=== PATIENT | male | born 1985 | race Asian ===

== ENCOUNTER 2022-12-02 08:53 | Outpatient (REF) | payer BC, SELFPAY ==
[2022-12-02 10:58] LABS: MANUAL DIFF FLAG NO
[2022-12-02 11:05] LABS: Basophils Absolute Auto 0.1 X10*3/uL (0.0-0.2); Basophils Percent Auto 0.8 % (0-2); Eosinophils Absolute Auto 0.1 X10*3/uL (0.0-0.4); Eosinophils Percent Auto 1.8 % (0-4); Hematocrit 39.6 % (42.0-52.0); Hemoglobin 13.7 g/dl (14.0-18.0); Imm Gran Abs Auto 0.02 X10*3/uL (0.00-0.03); Imm Gran Pct Auto 0.3 % (0.0-0.4); Lymphocytes Absolute Auto 2.2 X10*3/uL (1.2-4.9); Lymphocytes Percent Auto 33.9 % (20-40); Mean Corpuscular HGB Conc 34.6 g/dl (31.0-36.0); Mean Corpuscular Hemoglobin 29.7 pg (27.0-33.0); Mean Corpuscular Volume 85.9 fL (80.0-98.0); Mean Platelet Volume 10.4 fL (9.4-12.4); Monocytes Absolute Auto 0.6 X10*3/uL (0.1-1.2); Monocytes Percent Auto 9.4 % (2-11); Neutrophils Absolute Auto 3.5 x10*3/uL (2.0-8.3); Neutrophils Percent Auto 53.8 % (45-73); Platelet Count 250 X10*3/uL (160-400); Red Blood Count 4.61 X10*6/uL (4.60-5.80); Red Cell Distribution Width 12.1 % (11.0-16.0); White Blood Count 6.5 X10*3/uL (4.8-10.8)
[2022-12-02 11:21] LABS: Appearance Urine Clear; Color Urine Yellow; Glucose Urine UA Negative (Negative); Leukocyte Esterase Urine Negative (Negative); Nitrite Urine Negative (Negative); Specific Gravity - Urine 1.025 (1.005-1.025); Urine Blood Negative (Negative); Urine Ketones Negative (Negative); Urine Protein Negative (Neg-Trace)
[2022-12-02 11:34] LABS: Estimated Average Glucose 100 mg/dL; Hemoglobin A1c % 5.1 %
[2022-12-02 11:45] LABS: Creatinine Urine 148.98 mg/dL
[2022-12-02 11:56] LABS: Alanine Aminotransferase 24 U/L (0-40); Albumin Level 4.1 g/dL (3.5-5.0); Alkaline Phosphatase 39 U/L (39-117); Anion Gap 14 (12-20); Aspartate Amino Transferase 17 U/L (5-37); Bilirubin Total 0.7 mg/dL (0.0-1.0); Blood Urea Nitrogen 14 mg/dL (9-16); Carbon Dioxide 25 mmol/L (22-29); Chloride 106 mmol/L (96-108); Cholesterol 151 mg/dL; Estimated Glomerular Filt Rate > 60; Glucose Fasting 85 mg/dL (60-99); HDL Cholesterol 39 mg/dL; LDL Cholesterol Calculated 93 mg/dl; Potassium 3.9 mmol/L (3.3-5.1); Sodium 141 mmol/L (135-145); Total Protein 7.4 g/dL (6.5-8.0); Triglycerides 96 mg/dL
[2022-12-02 12:00] LABS: TSH reflex Free T4 1.83 uIU/mL (0.32-4.0); Vitamin D 25-OH Total 33.5 ng/mL (>30)
== END 2022-12-02 08:54 | disposition home or self-care (01) ==
LOC: HO.WFDLDS 08:53
PROVIDERS: Visit Provider Family Medicine
DX: Z00.00 Encounter for general adult medical examination without abnormal findings (principal); E55.9 Vitamin D deficiency, unspecified; E66.9 Obesity, unspecified; R73.01 Impaired fasting glucose; I10 Essential (primary) hypertension
CPT/HCPCS: 36415; 80053; 80061; 81003; 82043; 82306; 83036; 84443; 85025

== ENCOUNTER 2023-01-24 13:57 | Outpatient (AMB) | payer BC, SELFPAY ==
--- NOTE | 2023-01-24 14:05 | MHC.PC.OV ---
Vital Signs 01/24/23 14:07 Height 5 ft 8 in Weight 178 lb BMI 27.1 BP 120/62 Blood Pressure Location Lt brachial Position Sitting Pulse 69 Pulse Source Pulse Oximeter Pulse Oximetry (%) 97 Oxygen Delivery Method Room Air Intake Visit Reasons: CPE with f/u labs and health maintenance Intake Note: Patient is here for physical and follow up on labs. Allergies No Known Allergies Allergy (Verified 01/24/23 14:09) Tobacco use date assessed: 01/24/23 Dental Screening Dental Screen Date: 01/24/23 Did you have a dental visit in the last 12 months?: Yes Did you have a dental problem in the last 6 months where you did not have access to dental care?: No Was dental information given to patient?: No HPI CPE with f/u labs and health maintenance HPI Details 37 y/o male presents for a CPE with f/u labs and health maintenance. Labs were drawm 12/02/22. Reviewed labs with pt. Hgb low at 13.7. HCT low 39.6. Triglycerides 96. TC 151. LDL 93. HDL low at 39. Vitamin level 33.5. He is on cholcecalciferol 50mcg daily. Pt reports complaints of dyspnea. Pt reports increased stress primarily at work and anxiety. HPI Comments History of Present Illness Details Documentation assistance for Mansoor Castro MD, was provided by Wilver Trent,? Coffee Shop Attendant on 01/24/2023 3:02 PM [place]. I, Dr. Castor, have read, observed, and verified documentation.? [facility] Medical History Cyst near tailbone Epidermoid cyst of skin of chest Sebaceous cyst of left axilla Family History Paternal Grandmother Cancer Maternal Grandmother Advanced dementia Father Substance abuse Mother Mental health disorder Social History Household Members: Other Household Members Other:: mother Both parents involved: No Housing: Apartment Are you a primary health care / medical job titles to a significant other at home: Yes Do you presently have visiting nurse or other home services: No 75 years or older and lives alone: No Alcohol intake: never Patient Tobacco Use Status: Never used Tobacco e-Cigarette/Vaping Use: Never Used service: No Current occupational status: employed 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 Review of Systems Const Denies chills, Denies fatigue, Denies fever(s), Denies headache(s) and Denies weakness Eyes Denies change in vision ENT Denies dizziness, Denies headache(s), Denies hearing loss, Denies nasal congestion, Denies sinus pain, Denies sinus pressure and Denies sore throat Card Denies chest pain, Denies lightheadedness, Denies dyspnea and Denies other (palpitations) Resp Denies cough, Denies dyspnea and Denies wheezing GI Denies abdominal pain, Denies melena, Denies hematochezia, Denies change in bowel habits, Denies dyspepsia and Denies nausea Denies hematuria and Denies dysuria Musc Denies abnormal gait, Denies myalgias, Denies arthralgias, Denies numbness and Denies tingling Skin/Breast Denies rash, Denies unusual bruising and Denies wounds Neuro Denies abnormal gait, Denies dizziness, Denies headache(s), Denies memory loss, Denies numbness, Denies Sensory deficit (Neuro), Denies tingling and Denies weakness Psych Denies anxiety, Denies depression and Denies memory loss Endo Denies cold intolerance, Denies fatigue, Denies heat intolerance, Denies polydipsia and Denies polyuria Demetrius/Lymph Denies easy bleeding and Denies easy bruising Aller/Immun Denies wheezing Physical exam (Primary Care) Vital Signs: Last Vital Signs Pulse 69 01/24/23 14:07 BP 120/62 01/24/23 14:07 Pulse Ox 97 01/24/23 14:07 Oxygen Delivery Method Room Air 01/24/23 14:07 BMI result Body Mass Index 27.1 Tobacco/Smoking Status: Tobacco use Status Tobacco use date assessed 01/24/23 01/24/23 14:13 Patient Tobacco Use Status Never used Tobacco 01/24/23 14:07 e-Cigarette/Vaping Use Never Used 01/24/23 14:13 Const General: no acute distress, well developed, alert and awake Nutritional Appearance: well nourished Orientation/consciousness: patient oriented x3 HENMT Head: Yes normocephalic and Yes atraumatic Ears: hearing grossly normal bilaterally and TM's normal bilaterally General nose exam: Normal external nose present and Normal nares present Mouth: Normal oral and palatal mucosa present and moist mucous membranes Teeth and gingiva: dentition normal Throat: Yes posterior oropharynx normal Eyes General: appearance normal, both eyes and all related structures Pupils: Equal, round and reactive pupils present and Pupil accommodation reflex normal EOM: EOMs intact bilaterally Neck Neck: Yes normal visual inspection, Yes no lymphadenopathy and Yes trachea midline Thyroid: Thyroid normal Carotids: no bruits Lymphatic: no lymphadenopathy noted Chest Chest palpation & inspection: normal inspection of the chest Resp Other: Coarse breath sounds Effort & Inspection: normal respiratory effort Auscultation: clear to auscultation bilaterally Cardio Rate: regular rate Rhythm: regular rhythm Heart sounds: S1 normal heart sound present, S2 normal heart sound present, no gallops, no murmurs and no rubs Bruits: no abdominal aortic bruits and no carotid bruits GI Palpation (GI): No Abdominal aortic bruit present, Soft to palpation, nontender, No hepatosplenomegaly present and No Rebound tenderness present Auscultation: normal bowel sounds General: Yes no CVA tenderness Back/Spine/Pelvis Back: no CVA tenderness Cervical Spine: cervical ROM normal and No Cervical spine tenderness Thoracic/Lumbar Spine: thoraco-lumbar ROM normal, No pain with thoraco-lumbar ROM, No thoracic spinal tenderness and No lumbar spinal tenderness Skin Lesions: no lesions Rashes: no rashes Trauma: no lacerations or abrasions Wounds: no wounds Nails: normal Neuro General: patient oriented x3 Cranial nerves: Yes Equal, round and reactive pupils present Cognition (Neuro): normal cognition Gait exam (Neuro): Normal gait present Motor exam (neuro): 5/5 motor strength present throughout Sensory Exam: No Sensory deficit (Neuro) Deep tendon reflexes (DTR's): Right patellar reflex intensity grade: 2+ and Left patellar reflex intensity grade: 2+ Extrem General: Yes normal to inspection and No edema Psych Appearance: grossly normal Affect: normal affect Attitude: cooperative Thought process: Normal thought process present Assessment and Plan Assessment & Plan (1) Adult general medical exam: Code(s): Z00.00 - Encounter for general adult medical examination without abnormal findings Plan: 37-year-old male presents For complete physical exam Encouraged healthy diet with active lifestyle and plenty of exercise (2) Low HDL (under 40): Code(s): 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 Encouraged a diet higher in [place] 3 fatty acids and encouraged exercise (3) Dyspnea: Code(s): R06.00 - Dyspnea, unspecified Plan: Patient notes some dyspnea with exertion and has a mild coarseness at left upper lung field Chest x-ray was ordered at last visit but he has not gotten this done yet. He will get this done and we will review together at his next visit. I will call him if action is required sooner. (4) Heartburn: Code(s): R12 - Heartburn Plan: Mild and intermittent Advise lifestyle changes Can use OTC medications for intermittent episodes. (5) Anxiety: Code(s): F41.9 - Anxiety disorder, unspecified Plan: Increased stress primarily at work and anxiety He has had a therapist but it sounds like he would be interested in a knee therapist Will ask the nurse navigator to review basic stress management techniques and refer him for therapist Briefly discussed medications for anxiety. We will follow-up at his next visit and consider again. Orders: Referrals Nurse Navigator Referral F41.9 - Anxiety disorder, unspecified Coding Level of Care Code Est Pt Level 3 (44840) Est Pt Prev Care 18-39y(97355) Diagnoses Adult general medical exam Z00.00 Low HDL (under 40) E78.6 Dyspnea R06.00 Heartburn R12 Anxiety F41.9
[2023-01-24 14:07] VITALS: BP 120/62; PULSE 69; O2SAT 97; BMI 27.1
== END 2023-01-24 15:10 | disposition home or self-care (01) ==
PROVIDERS: PCP Family Medicine; Visit Provider Family Medicine
DX: Z00.00 Encounter for general adult medical examination without abnormal findings (principal); F41.9 Anxiety disorder, unspecified; E78.6 Lipoprotein deficiency; R06.00 Dyspnea, unspecified; R12 Heartburn
CPT/HCPCS: 99395

== ENCOUNTER 2023-01-25 08:59 | Outpatient (REF) | payer BC, SELFPAY ==
--- NOTE | ~2023-01-25 | XR_ITS ---
EXAMINATION: XR CHEST CLINICAL INFORMATION: Hoarseness, other specified symptoms COMPARISON: None available. TECHNIQUE: 2 views of the chest were obtained. FINDINGS: No significant abnormality is noted involving the heart, lungs, mediastinum, bony thorax or soft tissues. XR/XR chest 2V IMPRESSION: Unremarkable examination.
== END 2023-01-25 09:00 | disposition home or self-care (01) ==
LOC: HO.XRAY 08:59
PROVIDERS: PCP Family Medicine; Visit Provider Family Medicine
DX: R09.89 Other specified symptoms and signs involving the circulatory and respiratory systems (principal)
CPT/HCPCS: 71046

== ENCOUNTER 2023-03-03 11:57 | Outpatient (AMB) | payer BC, SELFPAY ==
[2023-03-03 11:59] VITALS: BP 104/66; PULSE 82; RESP 14; TEMP 37.1; O2SAT 98; BMI 39.0
--- NOTE | 2023-03-03 11:59 | A.OFFPC_ITS ---
Vital Signs 03/03/23 11:59 Height 5 ft 8 in Weight 256 lb 4 oz BMI 39.0 BP 104/66 Blood Pressure Location Lt brachial Position Sitting Respiration 14 Pulse 82 Pulse Source Pulse Oximeter Temp 98.7 F Temp Source Oral Pulse Oximetry (%) 98 Oxygen Delivery Method Room Air Intake Visit Reasons: f/u anxiety and chest x-ray Intake Note: Patient is here to follow up regarding his anxiety and chest xray. Patient reports he has not received a phone call about his therapy. Workforce Planning Analyst Required: No Accompanied by: Self / Same As Patient Allergies No Known Allergies Allergy (Verified 03/03/23 12:07) Tobacco use date assessed: 01/24/23 HPI f/u anxiety and chest x-ray HPI Details 37 y/o male presents to f/u anxiety and chest x-ray. Pt had dyspnea on exertion with coarse breath sounds at L upper lung field. Chest x-ray 01/25/23 was unremarkable. Pt weighs 256 lbs today. He reports he has not been in the 170s in a long time. [facility] Medical History Cyst near tailbone Epidermoid cyst of skin of chest Sebaceous cyst of left axilla Family History Paternal Grandmother Cancer Maternal Grandmother Advanced dementia Father Substance abuse Mother Mental health disorder Social History Household Members: Other Household Members Other:: mother Both parents involved: No Housing: Apartment Are you a primary home child care provider to a significant other at home: Yes Do you presently have visiting nurse or other home services: No 75 years or older and lives alone: No Alcohol intake: never Patient Tobacco Use Status: Never used Tobacco e-Cigarette/Vaping Use: Never Used service: No Current occupational status: employed 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 Cognitive needs: No Hearing needs: No Vision needs: No Questionnaire JANENE-7 AMB Questionnaire JANENE-7 Date JANENE - 7 assessed: 03/03/23 Feeling nervous, anxious, or on edge: 0 = Not at all Not being able to stop or control worryin = Not at all Worrying too much about different things: 1 = Several days Trouble relaxin = Several days Being so restless that it is hard to sit still: 1 = Several days Becoming easily annoyed or irritable: 1 = Several days Feeling afraid as if something awful might happen: 0 = Not at all Total JANENE-7 score (0-4 normal; 5-9 mild; 10-14 moderate; 15-21 severe): 4 Source: Developed by Drs. Dominic De Leon, Pam Landry, Chinedu Tate and colleagues, with an educational armida from [employer]. Review of Systems Const Denies chills, Denies fatigue, Denies fever(s), Denies headache(s) and Denies weakness ENT Denies dizziness and Denies headache(s) Card Denies chest pain, Denies lightheadedness, Denies dyspnea and Denies other (Palpitations) Resp Denies cough, Denies dyspnea, Denies wheezing and Denies other ( shortness of breath) Musc Denies numbness and Denies tingling Neuro Denies dizziness, Denies headache(s), Denies numbness, Denies tingling, Denies paresthesias and Denies weakness Psych Denies anxiety and Denies depression Endo Denies fatigue Aller/Immun Denies wheezing Physical exam (Primary Care) Vital Signs: Last Vital Signs Temp 98.7 F 03/03/23 11:59 Pulse 82 03/03/23 11:59 Resp 14 03/03/23 11:59 BP 104/66 03/03/23 11:59 Pulse Ox 98 03/03/23 11:59 Oxygen Delivery Method Room Air 03/03/23 11:59 BMI result Body Mass Index 39.0 Tobacco/Smoking Status: Tobacco use Status Tobacco use date assessed 01/24/23 03/03/23 11:59 Patient Tobacco Use Status Never used Tobacco 03/03/23 11:59 e-Cigarette/Vaping Use Never Used 03/03/23 11:59 Const General: no acute distress and well developed Nutritional Appearance: well nourished Orientation/consciousness: patient oriented x3 HENMT Head: Yes normocephalic and Yes atraumatic Eyes General: appearance normal, both eyes and all related structures Pupils: Equal, round and reactive pupils present EOM: EOMs intact bilaterally Resp Effort & Inspection: normal respiratory effort Auscultation: clear to auscultation bilaterally Cardio Rate: regular rate Rhythm: regular rhythm Heart sounds: S1 normal heart sound present, S2 normal heart sound present, no gallops, no murmurs and no rubs Neuro General: patient oriented x3 and gait normal Cranial nerves: Yes Equal, round and reactive pupils present Psych Affect: normal affect Assessment and Plan Assessment & Plan (1) Anxiety: Code(s): F41.9 - Anxiety disorder, unspecified Plan: Ongoing anxiety. Had referred him to the nurse navigator but he had not gotten a call back yet. Spoke to nurse navigator today who will see the patient. Reiterated to patient that he can call for appointment if he is not improving or worsens at any time. Reiterated that we can consider medications if he is interested. No medications needed at this time (2) Dyspnea: Code(s): R06.00 - Dyspnea, unspecified Plan: Patient had had dyspnea a few months ago in air quality was very poor He is breathing well now Lungs sound clear-no longer coarse breath sounds May have some restrictive lung disease due to obesity. Encouraged weight loss (3) Obesity: Code(s): E66.9 - Obesity, unspecified Plan: We discussed healthy diet with reduced portion sizes. He can let me know if he is still having difficulty with weight loss and we hand consider a medical weight management program Orders: Orders Comprehensive [place]. Panel Fast Today Z00.00 - Encounter for general adult medical examination without abnormal findings UA and rflx microscopic Today Z00.00 - Encounter for general adult medical examination without abnormal findings Lipid Panel Today Z00.00 - Encounter for general adult medical examination without abnormal findings Microalbumin, Random (w Creat) Today I10 - Essential (primary) hypertension TSH reflex Free T4 Today Z00.00 - Encounter for general adult medical examination without abnormal findings Coding Level of Care Code Est Pt Level 4 (33651) Diagnoses Anxiety F41.9 Dyspnea R06.00 Obesity E66.9
== END 2023-03-03 12:56 | disposition home or self-care (01) ==
PROVIDERS: PCP Family Medicine; Visit Provider Family Medicine
DX: F41.9 Anxiety disorder, unspecified (principal); R06.00 Dyspnea, unspecified; E66.9 Obesity, unspecified; Z68.39 Body mass index [BMI] 39.0-39.9, adult
CPT/HCPCS: 99214

== ENCOUNTER 2023-08-24 09:25 | Outpatient (AMB) | payer BC, SELFPAY ==
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
[2023-08-24 09:43] VITALS: BP 118/74; PULSE 81; RESP 13; TEMP 36.4; O2SAT 96; BMI 39.1
== END 2023-08-24 10:53 | disposition home or self-care (01) ==
PROVIDERS: PCP Family Medicine; Visit Provider Nurse Practitioner Family
DX: J01.40 Acute pansinusitis, unspecified (principal)
CPT/HCPCS: 99214

== ENCOUNTER 2023-10-04 14:16 | Outpatient (AMB) | payer BC, SELFPAY ==
--- NOTE | 2023-10-04 14:18 | MHC.PC.OV ---
Vital Signs 10/04/23 14:22 Height 5 ft 8 in Weight 258 lb 9 oz BMI 39.3 BP 120/62 Blood Pressure Location Lt brachial Position Sitting Pulse 72 Pulse Source Pulse Oximeter Pulse Oximetry (%) 97 Oxygen Delivery Method Room Air Intake Visit Reasons: insulin resistance and risk for DM, obesity Intake Note: Patient is here for insulin resistance and risk for diabetes. Patient complains of right foot pain. Allergies No Known Allergies Allergy (Verified 10/04/23 14:23) Medication List - Last Reconciled 10/04/23 by Mansoor Castro MD cholecalciferol (vitamin D3) 50 mcg PO DAILY flaxseed oil 1,000 mg PO DAILY multivitamin 1 tab PO DAILY Tobacco use date assessed: 10/04/23 Dental Screening Dental Screen Date: 01/24/23 Did you have a dental visit in the last 12 months?: Yes Did you have a dental problem in the last 6 months where you did not have access to dental care?: No Was dental information given to patient?: Patient has dentist HPI insulin resistance and risk for DM, obesity HPI Details 37 y/o male presents to f/u obesity. Last A1c 12/02/22 5.1%. A1c today 10/04/23 is 5.4%. He notes he has recently been weight lifting but has been struggling to do this 3x a week, though he has added some walking to his exercise regimen. Pt has complaints of R foot pain. [facility] Medical History Epidermoid cyst of skin of chest Sebaceous cyst of left axilla Cyst near tailbone Family History Paternal Grandmother Cancer Maternal Grandmother Advanced dementia Father Substance abuse Mother Mental health disorder Social History Household Members: Other Household Members Other:: mother Both parents involved: No Housing: Apartment Are you a primary respiratory care specialist to a significant other at home: Yes Do you presently have visiting nurse or other home services: No 75 years or older and lives alone: No Alcohol intake: never Patient Tobacco Use Status: Never used Tobacco e-Cigarette/Vaping Use: Never Used service: No Current occupational status: employed 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 1. Little interest or pleasure in doing things: not at all 2. Feeling down, depressed, or hopeless: not at all 3. Trouble falling or staying asleep, or sleeping too much: not at all 4. Feeling tired or having little energy: not at all 5. Poor appetite or overeating: not at all 6. Feeling bad about yourself - or that you are a failure or have let yourself or your family down: not at all 7. Trouble concentrating on things, such as reading the newspaper or watching television: not at all 8. Moving or speaking so slowly that other people could have noticed. Or the opposite - being so fidgety or restless that you have been moving around a lot more than usual: not at all 9. Thoughts that you would be better off or of hurting yourself in some way: not at all Total score: 0 Depression Screening Interpretation: Negative Depression Screening Done: Yes 22822 - PHQ-9 Billing: Yes Source: Developed by Drs. Dominic De Leon, Pam Landry, Chinedu Tate and colleagues, with an educational armida from [employer]. Thrive Questionnaire Date Thrive assessed: 10/04/23 I am a: Patient What is your living situation today?: I have a steady place to live Within the past 12 months, did the food you bought not last and you didn't have the money to get more?: Never true Within the past 12 months, did you worry whether your food would run out before you got money to buy more?: Never true Do you have trouble paying for medicines?: No Do you have trouble getting transportation to medical appointments?: No Do you have trouble paying your heating and electricity bill?: No Do you have trouble taking care of your child, family member or friend?: No Do you have trouble with day-to-day activities such as bathing, preparing meals, shopping, managing finances, etc.?: No Are you currently unemployed and looking for a job?: No Are you interested in more education?: No THRIVE Score: 0 AUDIT C Alcohol Use Questionnaire (AUDIT-C) 1. How often do you have a drink containing alcohol?: Never 3. How often do you have six or more drinks on one occasion?: Never Total Score: 0 JANENE-7 AMB Questionnaire JANENE-7 Date JANENE - 7 assessed: 10/04/23 Feeling nervous, anxious, or on edge: 0 = Not at all Not being able to stop or control worryin = Not at all Worrying too much about different things: 0 = Not at all Trouble relaxin = Not at all Being so restless that it is hard to sit still: 0 = Not at all Becoming easily annoyed or irritable: 0 = Not at all Feeling afraid as if something awful might happen: 0 = Not at all Total JANENE-7 score (0-4 normal; 5-9 mild; 10-14 moderate; 15-21 severe): 0 Source: Developed by Drs. Dominic De Leon, Pam Landry, Chinedu Tate and colleagues, with an educational armida from [employer]. JANENE-7 Assessment Billing JANENE-7 Assessment Tool: JANENE-7 Assessment 32293 Review of Systems Const Denies chills, Denies fatigue, Denies fever(s), Denies headache(s) and Denies weakness ENT Denies dizziness and Denies headache(s) Card Denies dyspnea Resp Denies cough, Denies dyspnea, Denies wheezing and Denies other (shortness of breath) Musc Details: R foot pain Denies numbness and Denies tingling Neuro Denies dizziness, Denies headache(s), Denies numbness, Denies tingling and Denies weakness Psych Denies anxiety and Denies depression Endo Denies fatigue Aller/Immun Denies wheezing Physical exam (Primary Care) Vital Signs: Last Vital Signs Pulse 72 10/04/23 14:22 BP 120/62 10/04/23 14:22 Pulse Ox 97 10/04/23 14:22 Oxygen Delivery Method Room Air 10/04/23 14:22 BMI result Body Mass Index 39.3 Tobacco/Smoking Status: Tobacco use Status Tobacco use date assessed 10/04/23 10/04/23 14:30 Patient Tobacco Use Status Never used Tobacco 10/04/23 14:18 e-Cigarette/Vaping Use Never Used 10/04/23 14:18 PHQ-9: PHQ-9 Score PHQ-9: Total score 0 10/04/23 14:32 Depression Screening Interpretation: Negative Thrive Assessment: Date of Thrive Assessment Date Thrive assessed 10/04/23 10/04/23 14:30 Const General: well developed; No acute distress Nutritional Appearance: well nourished and obese Orientation/consciousness: patient oriented x3 HENMT Head: Yes normocephalic and Yes atraumatic Eyes General: appearance normal, both eyes and all related structures Pupils: Equal, round and reactive pupils present EOM: EOMs intact bilaterally Resp Effort & Inspection: normal respiratory effort Auscultation: clear to auscultation bilaterally Cardio Rate: regular rate Rhythm: regular rhythm Heart sounds: S1 normal heart sound present, S2 normal heart sound present, no gallops, no murmurs and no rubs Neuro General: patient oriented x3 and gait normal Cranial nerves: Yes Equal, round and reactive pupils present Psych Affect: normal affect Assessment and Plan Assessment & Plan (1) Obesity: Code(s): E66.9 - Obesity, unspecified Plan: Obesity?and?patient?has?concerns?regarding?blood?sugar?and?diabetes. A1c?still?in?normal?range?though?it?did?climbed?to?5.4%. Encouraged?a?diet?lower?in?sugars?and?starches.??Encouraged?exercise?and?some?weight?loss. Will?continue?to?monitor (2) Plantar fasciitis: Code(s): M72.2 - Plantar fascial fibromatosis Plan: Right?plantar?fasciitis Demonstrated?exercises Can?also?use?ice/heat?and?ibuprofen If?not?improving?will?refer?to?Podiatry Orders: Orders Lipid Panel Today Z00.00 - Encounter for general adult medical examination without abnormal findings TSH reflex Free T4 Today Z00.00 - Encounter for general adult medical examination without abnormal findings UA and rflx microscopic Today Z00.00 - Encounter for general adult medical examination without abnormal findings Vitamin D 25-OH Total Today E55.9 - Vitamin D deficiency, unspecified Comprehensive [place]. Panel Fast Today Z00.00 - Encounter for general adult medical examination without abnormal findings Complete Blood Count Auto Diff Today Z00.00 - Encounter for general adult medical examination without abnormal findings Microalbumin, Random (w Creat) Today I10 - Essential (primary) hypertension Vitamin B12 and Folate Today E53.8 - Deficiency of other specified B group vitamins IRON PROFILE Today D64.9 - Anemia, unspecified AMB Hemoglobin A1c Today Z13.9 - Encounter for screening, unspecified Coding Level of Care Code Est Pt Level 3 (03723) Diagnoses Obesity E66.9 Plantar fasciitis M72.2 Additional Codes JANENE-7 Assessment Billing - JANENE-7 Assessment Tool: JANENE-7 Assessment 63303 ([id number])
[2023-10-04 14:22] VITALS: BP 120/62; PULSE 72; O2SAT 97; BMI 39.3
== END 2023-10-04 14:52 | disposition home or self-care (01) ==
PROVIDERS: PCP Family Medicine; Visit Provider Family Medicine
DX: M72.2 Plantar fascial fibromatosis (principal); E66.9 Obesity, unspecified; Z13.9 Encounter for screening, unspecified; Z68.39 Body mass index [BMI] 39.0-39.9, adult
CPT/HCPCS: 83036; 99213

== ENCOUNTER 2023-12-29 15:12 | Outpatient (AMB) | payer BC, SELFPAY ==
--- NOTE | 2023-12-29 15:34 | A.OFFPC_ITS ---
Vital Signs 12/29/23 15:37 Height 5 ft 8 in Weight 260 lb 2 oz BMI 39.5 BP 110/78 Blood Pressure Location Lt brachial Position Sitting Pulse 82 Pulse Source Pulse Oximeter Pulse Oximetry (%) 97 Oxygen Delivery Method Room Air Intake Visit Reasons: CPE with f/u labs and health maint. 30 mins Intake Note: Physical Allergies No Known Allergies Allergy (Verified 12/29/23 15:37) Tobacco use date assessed: 10/04/23 Dental Screening Dental Screen Date: 01/24/23 HPI CPE with f/u labs and health maint. 30 mins HPI Details Pt is a 38 y/o male who presents today for a cpe. psych: he has a hx of generalized anxiety. He states that he has followed with . He states that his job is not that interesting to him. He states that he does not have a lot of family or friends in this area and relocated for this job. He has started some painting classes that have been helpful. He is not interested in starting medication. 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 [facility] Medical History Epidermoid cyst of skin of chest Sebaceous cyst of left axilla Cyst near tailbone Family History Paternal Grandmother Cancer Maternal Grandmother Advanced dementia Father Substance abuse Mother Mental health disorder Social History Household Members: Other Household Members Other:: mother Both parents involved: No Housing: Apartment Are you a primary hourly caregiver to a significant other at home: Yes Do you presently have visiting nurse or other home services: No 75 years or older and lives alone: No Alcohol intake: never Patient Tobacco Use Status: Never used Tobacco e-Cigarette/Vaping Use: Never Used service: No Current occupational status: employed 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 Dominic De Leon, Pam Landry, Chinedu Tate and colleagues, with an educational armida from [employer]. Physical exam (Primary Care) Vital Signs: Last Vital Signs Pulse 82 12/29/23 15:37 BP 110/78 12/29/23 15:37 Pulse Ox 97 12/29/23 15:37 Oxygen Delivery Method Room Air 12/29/23 15:37 BMI result Body Mass Index 39.5 Tobacco/Smoking Status: Tobacco use Status Tobacco use date assessed 10/04/23 12/29/23 15:34 Patient Tobacco Use Status Never used Tobacco 12/29/23 15:34 e-Cigarette/Vaping Use Never Used 12/29/23 15:34 Thrive Assessment: Date of Thrive Assessment Date Thrive assessed 10/04/23 12/29/23 15:34 Const Orientation/consciousness: patient oriented x3 HENMT Ears: hearing grossly normal bilaterally and TM's normal bilaterally General nose exam: No nasal polyps present Face and sinus: Yes sinuses nontender Mouth: Normal oral and palatal mucosa present Eyes Pupils: Equal, round and reactive pupils present EOM: EOMs intact bilaterally Neck Neck: Yes full ROM and Yes no lymphadenopathy Thyroid: Thyroid normal Chest Chest palpation & inspection: normal inspection of the chest Resp Auscultation: clear to auscultation bilaterally Cardio Rate: regular rate Rhythm: regular rhythm Heart sounds: S1 normal heart sound present and S2 normal heart sound present Peripheral pulses: Peripheral pulses 2+ throughout GI Other: Soft, nontender Auscultation: normal bowel sounds Rectal Exam - Male: Yes deferred General: Yes no CVA tenderness Back/Spine/Pelvis Other: Nontender Back: no CVA tenderness Skin General skin exam: no rashes or lesions noted Neuro General: patient oriented x3, gait normal, CN's II-XI intact bilaterally and deep tendon reflexes 2+ bilaterally Cranial nerves: Yes Equal, round and reactive pupils present Motor exam (neuro): 5/5 motor strength present throughout Sensory Exam: double simultaneous stimulation for sensation normal Coordination: [id number] test normal and Romberg test negative Extrem General: Yes normal to inspection and Yes full ROM Psych Affect: normal affect Attitude: cooperative Thought process: Normal thought process present Thought content: Normal thought content present Insight: Good insight present (Psych) Judgement: Good judgement present (Psych) Assessment and Plan Assessment & Plan (1) Routine general medical examination at a health care facility: Code(s): Z00.00 - Encounter for general adult medical examination without abnormal findings Plan: reviewed. offered referral to maintenance mechanic helper and he declines. encouraged exercise. (2) Generalized anxiety disorder: Code(s): F41.1 - Generalized anxiety disorder Plan: stable. declines referral to . no meds Orders: Orders Comprehensive [place]. Panel Fast Today F41.1 - Generalized anxiety disorder, Z00.00 - Encounter for general adult medical examination without abnormal findings Complete Blood Count Auto Diff Today F41.1 - Generalized anxiety disorder, Z00.00 - Encounter for general adult medical examination without abnormal findings Lipid Panel Today F41.1 - Generalized anxiety disorder, Z00.00 - Encounter for general adult medical examination without abnormal findings TSH reflex Free T4 Today F41.1 - Generalized anxiety disorder, Z00.00 - Encounter for general adult medical examination without abnormal findings Coding Level of Care Code Est Pt Prev Care 18-39y(71413) Diagnoses Routine general medical examination at a health care facility Z00.00 Generalized anxiety disorder F41.1
[2023-12-29 15:37] VITALS: BP 110/78; PULSE 82; O2SAT 97; BMI 39.5
== END 2023-12-29 16:15 | disposition home or self-care (01) ==
PROVIDERS: PCP Family Medicine; Visit Provider Physician Assistant
DX: Z00.00 Encounter for general adult medical examination without abnormal findings (principal); F41.1 Generalized anxiety disorder
CPT/HCPCS: 99395

== ENCOUNTER 2024-01-23 07:42 | Outpatient (REF) | payer BC, SELFPAY ==
[2024-01-23 11:15] LABS: MANUAL DIFF FLAG NO
[2024-01-23 11:33] LABS: Basophils Absolute Auto 0.1 X10*3/uL (0.0-0.2); Eosinophils Absolute Auto 0.2 X10*3/uL (0.0-0.4); Hematocrit 40.9 % (42.0-52.0); Imm Gran Abs Auto 0.02 X10*3/uL (0.00-0.03); Imm Gran Pct Auto 0.3 % (0.0-0.4); Lymphocytes Absolute Auto 2.1 X10*3/uL (1.2-4.9); Lymphocytes Percent Auto 33.8 % (20-40); Mean Corpuscular HGB Conc 34.2 g/dl (31.0-36.0); Mean Corpuscular Hemoglobin 29.3 pg (27.0-33.0); Mean Corpuscular Volume 85.6 fL (80.0-98.0); Mean Platelet Volume 10.4 fL (9.4-12.4); Monocytes Absolute Auto 0.6 X10*3/uL (0.1-1.2); Monocytes Percent Auto 9.9 % (2-11); Neutrophils Absolute Auto 3.3 x10*3/uL (2.0-8.3); Platelet Count 245 X10*3/uL (160-400); Red Blood Count 4.78 X10*6/uL (4.60-5.80); Red Cell Distribution Width 12.5 % (11.0-16.0); White Blood Count 6.3 X10*3/uL (4.8-10.8)
[2024-01-23 11:34] LABS: Appearance Urine Clear; Color Urine Yellow; Glucose Urine UA Negative (Negative); Leukocyte Esterase Urine Negative (Negative); Nitrite Urine Negative (Negative); Urine Blood Negative (Negative); Urine Ketones Negative (Negative); Urine Protein Negative (Neg-Trace)
[2024-01-23 12:03] LABS: Alanine Aminotransferase 23 U/L (0-40); Albumin Level 4.1 g/dL (3.5-5.0); Alkaline Phosphatase 36 U/L (39-117); Anion Gap 11 (12-20); Aspartate Amino Transferase 19 U/L (5-37); Bilirubin Total 0.7 mg/dL (0.0-1.0); Blood Urea Nitrogen 12 mg/dL (9-16); Calcium 8.7 mg/dL (8.4-10.2); Carbon Dioxide 25 mmol/L (22-29); Chloride 106 mmol/L (96-108); Cholesterol 156 mg/dL (<200); Estimated Glomerular Filt Rate > 60; Glucose Fasting 93 mg/dL (60-99); HDL Cholesterol 41 mg/dL (>40); Iron 92 mcg/dL (45-160); LDL Cholesterol Calculated 89 mg/dL (<100); Percent Iron Saturation 30 % (15-50); Potassium 3.8 mmol/L (3.3-5.1); Sodium 138 mmol/L (135-145); Total Iron Binding Capacity 302 mcg/dL (228-428); Total Protein 7.2 g/dL (6.5-8.0); Triglycerides 133 mg/dL (<150); Unsaturated Iron Binding 210 ug/dL
[2024-01-23 12:09] LABS: TSH reflex Free T4 1.26 uIU/mL (0.32-4.0)
[2024-01-23 12:18] LABS: Creatinine Urine 122.57 mg/dL; Microalbum/Creatinine Ratio Ur 4.8 ug/mg cr (<30)
[2024-01-23 12:19] LABS: Folate 7.8 ng/mL (> or = 4.0); Vitamin B12 401 pg/mL (200-900)
== END 2024-01-23 07:43 | disposition home or self-care (01) ==
LOC: HO.WFDLDS 07:42
PROVIDERS: Visit Provider Family Medicine
DX: Z00.00 Encounter for general adult medical examination without abnormal findings (principal); E55.9 Vitamin D deficiency, unspecified; E53.8 Deficiency of other specified B group vitamins; I10 Essential (primary) hypertension; D64.9 Anemia, unspecified
CPT/HCPCS: 36415; 80053; 80061; 81003; 82043; 82306; 82570; 82607; 82746; 83540; 84443; 85025

== ENCOUNTER 2024-01-27 11:58 | Outpatient (AMB) | payer BC, SELFPAY ==
--- NOTE | 2024-01-27 12:08 | A.OFFPC_ITS ---
Vital Signs 01/27/24 12:17 Height 5 ft 7 in Weight 261 lb 4 oz BMI 40.9 BP 110/80 Blood Pressure Location Lt brachial Position Sitting Respiration 16 Pulse 73 Pulse Source Pulse Oximeter Temp 97.9 F Temp Source Oral Pulse Oximetry (%) 98 Oxygen Delivery Method Room Air Intake Visit Reasons: CPE with f/u labs and health maint. Intake Note: CPE lab follow up pt would also like to talk about staring depression medication due to isolation in his personal life patient feels stuck due to little social life and a mental strain taking care of his mother. Allergies No Known Allergies Allergy (Verified 12/29/23 15:37) Tobacco use date assessed: 10/04/23 Dental Screening Dental Screen Date: 01/24/23 HPI CPE with f/u labs and health maint. HPI Details 38 y/o male presents today for a CPE wit h f/u labs and health maintenance. Labs drawn 01/23/24. Reviewed labs with pt. Mildly low Hct at 40.9. Triglycerides 133. TC 156. LDL 89. HDL 41. PHQ-9 12, JANENE-7 8 today. Pt reports chest discomfort after swimming yesterday. Exercises 3-4x a week. [facility] Medical History Epidermoid cyst of skin of chest Sebaceous cyst of left axilla Cyst near tailbone Family History Paternal Grandmother Cancer Maternal Grandmother Advanced dementia Father Substance abuse Mother Mental health disorder Social History Household Members: Other Household Members Other:: mother Both parents involved: No Housing: Apartment Are you a primary patient care nursing assistant to a significant other at home: Yes Do you presently have visiting nurse or other home services: No 75 years or older and lives alone: No Alcohol intake: never Patient Tobacco Use Status: Never used Tobacco e-Cigarette/Vaping Use: Never Used service: No Current occupational status: employed 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 1. Little interest or pleasure in doing things: several days 2. Feeling down, depressed, or hopeless: nearly every day 3. Trouble falling or staying asleep, or sleeping too much: not at all 4. Feeling tired or having little energy: more than half the days 5. Poor appetite or overeating: nearly every day 6. Feeling bad about yourself - or that you are a failure or have let yourself or your family down: several days 7. Trouble concentrating on things, such as reading the newspaper or watching television: several days 8. Moving or speaking so slowly that other people could have noticed. Or the opposite - being so fidgety or restless that you have been moving around a lot more than usual: several days 9. Thoughts that you would be better off or of hurting yourself in some way: not at all Total score: 12 Depression Screening Interpretation: Positive Depression Screening Done: Yes 66632 - PHQ-9 Billing: Yes Source: Developed by Drs. Dominic De Leon, Pam Landry, Chinedu Tate and colleagues, with an educational armida from [employer]. Thrive Questionnaire Date Thrive assessed: 01/27/24 I am a: Patient What is your living situation today?: I have a steady place to live Within the past 12 months, did the food you bought not last and you didn't have the money to get more?: Never true Within the past 12 months, did you worry whether your food would run out before you got money to buy more?: Never true Do you have trouble paying for medicines?: No Do you have trouble getting transportation to medical appointments?: No Do you have trouble paying your heating and electricity bill?: No Do you have trouble taking care of your child, family member or friend?: Yes Do you have trouble with day-to-day activities such as bathing, preparing meals, shopping, managing finances, etc.?: No Are you currently unemployed and looking for a job?: No Are you interested in more education?: No Please select the resources that you would like help with: None Currently or been in a relationship where the following occur: No concerns reported THRIVE Score: 0 AUDIT C Alcohol Use Questionnaire (AUDIT-C) 1. How often do you have a drink containing alcohol?: Never 3. How often do you have six or more drinks on one occasion?: Never Total Score: 0 Score Reviewed/Action Taken: Yes JANENE-7 AMB Questionnaire JANENE-7 Date JANENE - 7 assessed: 01/27/24 Feeling nervous, anxious, or on edge: 1 = Several days Not being able to stop or control worryin = Several days Worrying too much about different things: 1 = Several days Trouble relaxin = Several days Being so restless that it is hard to sit still: 0 = Not at all Becoming easily annoyed or irritable: 3 = Nearly every day Feeling afraid as if something awful might happen: 1 = Several days Total JANENE-7 score (0-4 normal; 5-9 mild; 10-14 moderate; 15-21 severe): 8 Source: Developed by Drs. Dominic De Leon, Pam Landry, Chinedu Tate and colleagues, with an educational armida from [employer]. JANENE-7 Assessment Billing JANENE-7 Assessment Tool: JANENE-7 Assessment 10439 Review of Systems Const Denies chills, Denies fatigue, Denies fever(s), Denies headache(s) and Denies weakness Eyes Denies change in vision ENT Denies dizziness, Denies headache(s), Denies hearing loss, Denies nasal congestion, Denies sinus pain, Denies sinus pressure and Denies sore throat Card Denies chest pain, Denies lightheadedness, Denies dyspnea and Denies other (palpitations) Resp Denies cough, Denies dyspnea and Denies wheezing GI Denies abdominal pain, Denies melena, Denies hematochezia, Denies change in bowel habits, Denies dyspepsia and Denies nausea Denies hematuria and Denies dysuria Musc Denies abnormal gait, Denies myalgias, Denies arthralgias, Denies numbness and Denies tingling Skin/Breast Denies rash, Denies unusual bruising and Denies wounds Neuro Denies abnormal gait, Denies dizziness, Denies headache(s), Denies memory loss, Denies numbness, Denies Sensory deficit (Neuro), Denies tingling and Denies weakness Psych Reports anxiety, Reports depression and Denies memory loss Endo Denies cold intolerance, Denies fatigue, Denies heat intolerance, Denies polydipsia and Denies polyuria Demetrius/Lymph Denies easy bleeding and Denies easy bruising Aller/Immun Denies wheezing Physical exam (Primary Care) Vital Signs: Last Vital Signs Temp 97.9 F 01/27/24 12:17 Pulse 73 01/27/24 12:17 Resp 16 01/27/24 12:17 BP 110/80 01/27/24 12:17 Pulse Ox 98 01/27/24 12:17 Oxygen Delivery Method Room Air 01/27/24 12:17 BMI result Body Mass Index 40.9 Tobacco/Smoking Status: Tobacco use Status Tobacco use date assessed 10/04/23 01/27/24 12:21 Patient Tobacco Use Status Never used Tobacco 01/27/24 12:21 e-Cigarette/Vaping Use Never Used 01/27/24 12:21 PHQ-9: PHQ-9 Score PHQ-9: Total score 12 01/27/24 12:32 Depression Screening Interpretation: Positive Thrive Assessment: Date of Thrive Assessment Date Thrive assessed 01/27/24 01/27/24 12:21 Currently or been in a relationship where the following occur: No concerns reported Const General: no acute distress, well developed, alert and awake Nutritional Appearance: well nourished and obese Orientation/consciousness: patient oriented x3 HENMT Head: Yes normocephalic and Yes atraumatic Ears: hearing grossly normal bilaterally and TM's normal bilaterally General nose exam: Normal external nose present and Normal nares present Mouth: Normal oral and palatal mucosa present and moist mucous membranes Teeth and gingiva: dentition normal Throat: Yes posterior oropharynx normal Eyes General: appearance normal, both eyes and all related structures Pupils: Equal, round and reactive pupils present and Pupil accommodation reflex normal EOM: EOMs intact bilaterally Neck Neck: Yes normal visual inspection, Yes no lymphadenopathy and Yes trachea midline Thyroid: Thyroid normal Carotids: no bruits Lymphatic: no lymphadenopathy noted Chest Chest palpation & inspection: normal inspection of the chest Resp Effort & Inspection: normal respiratory effort Auscultation: clear to auscultation bilaterally Cardio Rate: regular rate Rhythm: regular rhythm Heart sounds: S1 normal heart sound present, S2 normal heart sound present, no gallops, no murmurs and no rubs Bruits: no abdominal aortic bruits and no carotid bruits GI Palpation (GI): No Abdominal aortic bruit present, Soft to palpation, nontender, No hepatosplenomegaly present and No Rebound tenderness present Auscultation: normal bowel sounds General: Yes no CVA tenderness Back/Spine/Pelvis Back: no CVA tenderness Cervical Spine: cervical ROM normal and No Cervical spine tenderness Thoracic/Lumbar Spine: thoraco-lumbar ROM normal, No pain with thoraco-lumbar ROM, No thoracic spinal tenderness and No lumbar spinal tenderness Skin Lesions: no lesions Rashes: no rashes Trauma: no lacerations or abrasions Wounds: no wounds Nails: normal Neuro General: patient oriented x3 Cranial nerves: Yes Equal, round and reactive pupils present Cognition (Neuro): normal cognition Gait exam (Neuro): Normal gait present Motor exam (neuro): 5/5 motor strength present throughout Sensory Exam: No Sensory deficit (Neuro) Deep tendon reflexes (DTR's): Right patellar reflex intensity grade: 2+ and Left patellar reflex intensity grade: 2+ Extrem General: Yes normal to inspection and No edema Psych Appearance: grossly normal Affect: normal affect Attitude: cooperative Thought process: Normal thought process present Assessment and Plan Assessment & Plan (1) Adult general medical exam: Code(s): Z00.00 - Encounter for general adult medical examination without abnormal findings Plan: 38-year-old?male?presents?for?complete?physical?exam Recent?thorough?exam?was?not?greater?than?1?year?+1?day?from?his?prior?physical Exam?within?normal?limits?except?as?described?herein Encouraged?healthy?diet?with?active?lifestyle?and?plenty?of?exercise (2) Anxiety with depression: Code(s): F41.8 - Other specified anxiety disorders Plan: Ongoing?depression?and?anxiety Patient?has?a?therapist Will?trial?citalopram?20?mg?daily (3) Neoplasm of uncertain behavior of skin: Code(s): D48.5 - Neoplasm of uncertain behavior of skin Plan: Referred?to?dermatology?for?removal/biopsy (4) Morbid obesity: Code(s): E66.01 - Morbid (severe) obesity due to excess calories Plan: Patient?says?he?is?taking?in?about?2800?calories?per?day?and?does?not?feel?as?sa tisfied?below?this?level Encouraged?healthy?diet?and?to?work?at?caloric?intake?around?2300?calories Continue?exercise (5) Chest discomfort: Code(s): R07.89 - Other chest pain Plan: Single?episode?of?chest?discomfort?after?swimming. No sxs currently EKG: ?Normal?sinus?rhythm,?normal?axis,?normal?intervals,?no?hypertrophy,?no?ST-T-wav e?changes Likely?muscle?strain?secondary?to?swimming Orders: Orders AMB EKG-In Office Today R07.89 - Other chest pain Referrals Dermatology Referral D48.5 - Neoplasm of uncertain behavior of skin Medications: New citalopram 20 mg PO DAILY 30 days 30 tabs 3RF Coding Level of Care Code Est Pt Level 3 (68441) Est Pt Prev Care 18-39y(44283) Diagnoses Adult general medical exam Z00.00 Anxiety with depression F41.8 Neoplasm of uncertain behavior of skin D48.5 Morbid obesity E66.01 Chest discomfort R07.89 Additional Codes JANENE-7 Assessment Billing - JANENE-7 Assessment Tool: JANENE-7 Assessment 17592 ([id number])
[2024-01-27 12:17] VITALS: BP 110/80; PULSE 73; RESP 16; TEMP 36.6; O2SAT 98; BMI 40.9
== END 2024-01-27 13:34 | disposition home or self-care (01) ==
PROVIDERS: PCP Family Medicine; Visit Provider Family Medicine
DX: Z00.00 Encounter for general adult medical examination without abnormal findings (principal); E66.01 Morbid (severe) obesity due to excess calories; Z68.41 Body mass index [BMI] 40.0-44.9, adult; F41.8 Other specified anxiety disorders; D48.5 Neoplasm of uncertain behavior of skin; R07.89 Other chest pain
CPT/HCPCS: 93000; 96127; 99213; 99395

== ENCOUNTER 2024-03-08 09:34 | Outpatient (AMB) | payer BC, SELFPAY ==
--- NOTE | 2024-03-08 09:40 | A.OFFPC_ITS ---
Vital Signs 03/08/24 09:45 Height 5 ft 7 in Weight 258 lb 6 oz BMI 40.5 BP 100/56 L Blood Pressure Location Lt brachial Position Sitting Respiration 12 Pulse 78 Pulse Source Pulse Oximeter Temp 97.9 F Temp Source Tympanic Pulse Oximetry (%) 97 Oxygen Delivery Method Room Air Intake Visit Reasons: Follow-up depression/anxiety Intake Note: follow up for anxiety and depression Allergies No Known Allergies Allergy (Verified 03/08/24 09:45) Medication List - Last Reconciled 03/08/24 by Mansoor Castro MD citalopram 20 mg PO DAILY 30 days Tobacco use date assessed: 10/04/23 Dental Screening Dental Screen Date: 01/24/23 HPI Follow-up depression/anxiety HPI Details 38 y/o male presents to f/u depression/a nxiety. Still taking citalopram. Pt notes it has been helping though he feels current dose has leveled off. He notes he has had a therapist in the past before but has not been seeing them. PHQ-9 4, JANENE-7 3 today. HPI Comments History of Present Illness Details Documentation assistance for Mansoor Castro MD, was provided by Wilver Trent, Machine Operator Cane Cutter on 03/08/2024 at 10:08 AM EST. I, Dr. Castro, have read, observed, and verified documentation. [facility] Medical History Epidermoid cyst of skin of chest Sebaceous cyst of left axilla Cyst near tailbone Family History Paternal Grandmother Cancer Maternal Grandmother Advanced dementia Father Substance abuse Mother Mental health disorder Social History Household Members: Other Household Members Other:: mother Both parents involved: No Housing: Apartment Are you a primary career counselor to a significant other at home: Yes Do you presently have visiting nurse or other home services: No 75 years or older and lives alone: No Alcohol intake: never Patient Tobacco Use Status: Never used Tobacco e-Cigarette/Vaping Use: Never Used service: No Current occupational status: employed 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 1. Little interest or pleasure in doing things: several days 2. Feeling down, depressed, or hopeless: not at all 3. Trouble falling or staying asleep, or sleeping too much: several days 4. Feeling tired or having little energy: not at all 5. Poor appetite or overeating: more than half the days 6. Feeling bad about yourself - or that you are a failure or have let yourself or your family down: not at all 7. Trouble concentrating on things, such as reading the newspaper or watching television: not at all 8. Moving or speaking so slowly that other people could have noticed. Or the opposite - being so fidgety or restless that you have been moving around a lot more than usual: not at all 9. Thoughts that you would be better off or of hurting yourself in some way: not at all Total score: 4 Depression Screening Interpretation: Negative Depression Screening Done: Yes 56023 - PHQ-9 Billing: Yes Source: Developed by Drs. Dominic De Leon, Pam Landry, Chinedu Tate and colleagues, with an educational armida from [employer]. Thrive Questionnaire Date Thrive assessed: 01/27/24 JANENE-7 AMB Questionnaire JANENE-7 Date JANENE - 7 assessed: 03/08/24 Feeling nervous, anxious, or on edge: 0 = Not at all Not being able to stop or control worryin = Several days Worrying too much about different things: 0 = Not at all Trouble relaxin = Not at all Being so restless that it is hard to sit still: 0 = Not at all Becoming easily annoyed or irritable: 1 = Several days Feeling afraid as if something awful might happen: 1 = Several days Total JANENE-7 score (0-4 normal; 5-9 mild; 10-14 moderate; 15-21 severe): 3 Source: Developed by Drs. Dominic De Leon, Pam Landry, Chinedu Tate and colleagues, with an educational armida from [employer] [facility]. JANENE-7 Assessment Billing JANENE-7 Assessment Tool: JANENE-7 Assessment 71333 Review of Systems Const Denies chills, Denies fatigue, Denies fever(s), Denies headache(s) and Denies weakness ENT Denies dizziness and Denies headache(s) Card Denies dyspnea Resp Denies cough, Denies dyspnea, Denies wheezing and Denies other (shortness of breath) Musc Denies numbness and Denies tingling Neuro Denies dizziness, Denies headache(s), Denies numbness, Denies tingling and Denies weakness Psych Reports anxiety and Reports depression Endo Denies fatigue Aller/Immun Denies wheezing Physical exam (Primary Care) Vital Signs: Last Vital Signs Temp 97.9 F 03/08/24 09:45 Pulse 78 03/08/24 09:45 Resp 12 03/08/24 09:45 BP 100/56 L 03/08/24 09:45 Pulse Ox 97 03/08/24 09:45 Oxygen Delivery Method Room Air 03/08/24 09:45 BMI result Body Mass Index 40.5 Tobacco/Smoking Status: Tobacco use Status Tobacco use date assessed 10/04/23 03/08/24 09:49 Patient Tobacco Use Status Never used Tobacco 03/08/24 09:49 e-Cigarette/Vaping Use Never Used 03/08/24 09:49 PHQ-9: PHQ-9 Score PHQ-9: Total score 4 03/08/24 10:05 Depression Screening Interpretation: Negative Thrive Assessment: Date of Thrive Assessment Date Thrive assessed 01/27/24 03/08/24 09:49 Const General: well developed; No acute distress Nutritional Appearance: well nourished and obese morbidly obese Orientation/consciousness: patient [facility] x3 [facility]: Yes normocephalic and Yes atraumatic Eyes General: appearance normal, both eyes and all related structures Pupils: Equal, round and reactive pupils present EOM: EOMs intact bilaterally Resp Effort & Inspection: normal respiratory effort Auscultation: clear to auscultation bilaterally Cardio Rate: regular rate Rhythm: regular rhythm Heart sounds: S1 normal heart sound present, S2 normal heart sound present, no gallops, no murmurs and no rubs Neuro General: patient oriented x3 and gait normal Cranial nerves: Yes Equal, round and reactive pupils present Psych Affect: normal affect Assessment and Plan Assessment & Plan (1) Anxiety with depression: Code(s): F41.8 - Other specified anxiety disorders Plan: Patient?notes?that?he?initially?had?significant?improvements.??He?says?this?has? leveled?off?and?perhaps?decreased?a?little?bit?this?week. He?has?only?been?taking?10?mg?daily?and?has?not?increase?this. Advised?him?to?try?to?titrate?up?to?20?mg?daily Also,?patient?has?had?a?therapis t?in?the?past?but?not?recently.??Advised?he?get?back?in?touch?with?his?therapist . Coding Level of Care Code Est Pt Level 3 (46561) Diagnoses Anxiety with depression F41.8 Additional Codes JANENE-7 Assessment Billing - JANENE-7 Assessment Tool: JANENE-7 Assessment [id number] ([id number])
[2024-03-08 09:45] VITALS: BP 100/56; PULSE 78; RESP 12; TEMP 36.6; O2SAT 97; BMI 40.5
== END 2024-03-08 10:26 | disposition home or self-care (01) ==
PROVIDERS: PCP Family Medicine; Visit Provider Family Medicine
DX: F41.8 Other specified anxiety disorders (principal)

== ENCOUNTER → 2024-03-08 09:34 | Outpatient (BNVA) | payer BC, SELFPAY | PROVIDERS: PCP Family Medicine; Visit Provider Family Medicine | DX: F41.8 Other specified anxiety disorders (principal); Z79.899 Other long term (current) drug therapy | CPT/HCPCS: 96127 ==

== ENCOUNTER 2024-04-05 08:19 | Outpatient (AMB) | payer BC, SELFPAY ==
--- NOTE | 2024-04-05 08:23 | MHC.PC.OV ---
Vital Signs 04/05/24 08:30 Height 5 ft 7 in Weight 255 lb 4 oz BMI 40.0 BP 116/76 Blood Pressure Location Lt brachial Respiration 14 Pulse 65 Pulse Source Pulse Oximeter Pulse Oximetry (%) 98 Oxygen Delivery Method Room Air Intake Visit Reasons: anxiety Intake Note: Follow up Fruit Checker Required: No Allergies No Known Allergies Allergy (Verified 04/05/24 08:26) Tobacco use date assessed: 10/04/23 Dental Screening Dental Screen Date: 01/24/23 HPI anxiety HPI Details Patient is a 38-year-old male with a significant past medical history of anxiety and depression presenting today for a follow up. He was recently seen in [facility] on his Celexa to 20 mg. He states that he is tolerating this very well. He denies any SI/HI. Finds that this is effective. Has noticed some increased energy and has been exercising more. He has been trying to eat healthier as well. He has lost a few lb with this. He does not want to see a therapist at this point because he feels overall controlled. [facility] Medical History Epidermoid cyst of skin of chest Sebaceous cyst of left axilla Cyst near tailbone Family History Paternal Grandmother Cancer Maternal Grandmother Advanced dementia Father Substance abuse Mother Mental health disorder Social History Household Members: Other Household Members Other:: mother Both parents involved: No Housing: Apartment Are you a primary overnight caregiver to a significant other at home: Yes Do you presently have visiting nurse or other home services: No 75 years or older and lives alone: No Alcohol intake: never Patient Tobacco Use Status: Never used Tobacco e-Cigarette/Vaping Use: Never Used service: No Current occupational status: employed 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 1. Little interest or pleasure in doing things: not at all 2. Feeling down, depressed, or hopeless: not at all 3. Trouble falling or staying asleep, or sleeping too much: nearly every day 4. Feeling tired or having little energy: not at all 5. Poor appetite or overeating: several days 6. Feeling bad about yourself - or that you are a failure or have let yourself or your family down: not at all 7. Trouble concentrating on things, such as reading the newspaper or watching television: not at all 8. Moving or speaking so slowly that other people could have noticed. Or the opposite - being so fidgety or restless that you have been moving around a lot more than usual: not at all 9. Thoughts that you would be better off or of hurting yourself in some way: not at all Total score: 4 Source: Developed by Drs. Dominic De Leon, Pam Landry, Chinedu Tate and colleagues, with an educational armida from [employer]. Thrive Questionnaire Date Thrive assessed: 01/27/24 I am a: Patient What is your living situation today?: I have a steady place to live Within the past 12 months, did the food you bought not last and you didn't have the money to get more?: Never true Within the past 12 months, did you worry whether your food would run out before you got money to buy more?: Never true Do you have trouble paying for medicines?: No Do you have trouble getting transportation to medical appointments?: No Do you have trouble paying your heating and electricity bill?: No Do you have trouble taking care of your child, family member or friend?: No Do you have trouble with day-to-day activities such as bathing, preparing meals, shopping, managing finances, etc.?: No Are you currently unemployed and looking for a job?: No Are you interested in more education?: I choose not to answer this question Please select the resources that you would like help with: None Currently or been in a relationship where the following occur: No concerns reported THRIVE Score: 0 AUDIT C Alcohol Use Questionnaire (AUDIT-C) 1. How often do you have a drink containing alcohol?: Never Total Score: 0 JANENE-7 AMB Questionnaire JANENE-7 Date JANENE - 7 assessed: 03/08/24 Feeling nervous, anxious, or on edge: 0 = Not at all Not being able to stop or control worryin = Not at all Worrying too much about different things: 0 = Not at all Trouble relaxin = Not at all Being so restless that it is hard to sit still: 0 = Not at all Becoming easily annoyed or irritable: 0 = Not at all Feeling afraid as if something awful might happen: 0 = Not at all Total JANENE-7 score (0-4 normal; 5-9 mild; 10-14 moderate; 15-21 severe): 0 Source: Developed by Drs. Dominic De Leon, Pam Landry, Chinedu Tate and colleagues, with an educational armida from [employer]. Physical exam (Primary Care) Vital Signs: Last Vital Signs Pulse 65 04/05/24 08:30 Resp 14 04/05/24 08:30 BP 116/76 04/05/24 08:30 Pulse Ox 98 04/05/24 08:30 Oxygen Delivery Method Room Air 04/05/24 08:30 BMI result Body Mass Index 40.0 Tobacco/Smoking Status: Tobacco use Status Tobacco use date assessed 10/04/23 04/05/24 08:25 Patient Tobacco Use Status Never used Tobacco 04/05/24 08:25 e-Cigarette/Vaping Use Never Used 04/05/24 08:25 PHQ-9: PHQ-9 Score PHQ-9: Total score 4 04/05/24 08:25 Thrive Assessment: Date of Thrive Assessment Date Thrive assessed 01/27/24 04/05/24 08:25 Currently or been in a relationship where the following occur: No concerns reported Const Orientation/consciousness: patient oriented x3 HENMT Ears: hearing grossly normal bilaterally Neck Thyroid: Thyroid normal Lymphatic: no lymphadenopathy noted Resp Auscultation: clear to auscultation bilaterally Cardio Rate: regular rate Rhythm: regular rhythm Heart sounds: S1 normal heart sound present and S2 normal heart sound present GI Inspection: Yes normal to inspection Palpation (GI): Soft to palpation and Other GI palpation findings present (nontender, no cva tenderness) Auscultation: normoactive bowel sounds Rectal Exam - Male: Yes deferred Skin General skin exam: no rashes or lesions noted Neuro General: patient oriented x3, gait normal and no focal motor deficits Results Reviewed Results Reviewed: Laboratory Tests 10/04/23 01/23/24 14:36 07:44 Sodium 138 Potassium 3.8 Chloride 106 Carbon Dioxide 25 Estimated GFR > 60 Fasting Glucose 93 Hgb A1c (Clinic) 5.4 Calcium 8.7 Triglycerides 133 Cholesterol 156 LDL Cholesterol, Calc 89 HDL Cholesterol 41 Vitamin B12 401 TSH 1.26 Coding Level of Care Code Est Pt Level 3 (50989) Diagnoses Anxiety with depression F41.8 Assessment & Plan Assessment & Plan (1) Anxiety with depression: Code(s): F41.8 - Other specified anxiety disorders Category: Medical Plan: Reviewed last labs with patient. Continue current regimen. Advised patient to follow up in 6 months. Sooner if needed. Patient understands and agrees with the plan.
[2024-04-05 08:30] VITALS: BP 116/76; PULSE 65; RESP 14; O2SAT 98; BMI 40.0
== END 2024-04-05 09:05 | disposition home or self-care (01) ==
PROVIDERS: PCP Family Medicine; Visit Provider Physician Assistant
DX: F41.8 Other specified anxiety disorders (principal)

== ENCOUNTER → 2024-04-05 08:19 | Outpatient (BNVA) | payer BC, SELFPAY | PROVIDERS: PCP Family Medicine; Visit Provider Physician Assistant ==

== ENCOUNTER 2024-07-05 08:27 | Outpatient (AMB) | payer BC, SELFPAY ==
--- NOTE | 2024-07-05 08:32 | MHC.PC.OV ---
Vital Signs 07/05/24 08:35 Height 5 ft 7 in Weight 263 lb 6 oz BMI 41.2 BP 110/66 Blood Pressure Location Lt brachial Position Sitting Respiration 14 Pulse 96 Pulse Source Pulse Oximeter Temp 97.8 F Temp Source Oral Pulse Oximetry (%) 96 Oxygen Delivery Method Room Air Intake Visit Reasons: f/u anxiety/depression Intake Note: f/u for anxiety and depression Allergies No Known Allergies Allergy (Verified 07/05/24 08:34) Medication List - Last Reconciled 07/05/24 by Mansoor Castro MD citalopram 20 mg PO DAILY 90 days [flax seed oil .] Tobacco use date assessed: 10/04/23 Dental Screening Dental Screen Date: 01/24/23 HPI f/u anxiety/depression HPI Details 38 y/o male presents to f/u anxiety/depression. Had started him on citalopram 20mg. PHQ-9 3, JANENE-7 0 today. Mood improved compared to prior visit. [facility] Medical History Epidermoid cyst of skin of chest Sebaceous cyst of left axilla Cyst near tailbone Family History Paternal Grandmother Cancer Maternal Grandmother Advanced dementia Father Substance abuse Mother Mental health disorder Social History Household Members: Other Household Members Other:: mother Both parents involved: No Housing: Apartment Are you a primary clinical care coordinator to a significant other at home: Yes Do you presently have visiting nurse or other home services: No 75 years or older and lives alone: No Alcohol intake: never Patient Tobacco Use Status: Never used Tobacco e-Cigarette/Vaping Use: Never Used service: No Current occupational status: employed 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 1. Little interest or pleasure in doing things: not at all 2. Feeling down, depressed, or hopeless: not at all 3. Trouble falling or staying asleep, or sleeping too much: several days 4. Feeling tired or having little energy: several days 5. Poor appetite or overeating: several days 6. Feeling bad about yourself - or that you are a failure or have let yourself or your family down: not at all 7. Trouble concentrating on things, such as reading the newspaper or watching television: not at all 8. Moving or speaking so slowly that other people could have noticed. Or the opposite - being so fidgety or restless that you have been moving around a lot more than usual: not at all 9. Thoughts that you would be better off or of hurting yourself in some way: not at all Total score: 3 Depression Screening Interpretation: Negative Depression Screening Done: Yes 34362 - PHQ-9 Billing: Yes Source: Developed by Drs. Dominic De Leon, Pam Landry, Chinedu Tate and colleagues, with an educational armida from [employer]. Thrive Questionnaire Date Thrive assessed: 07/05/24 I am a: Patient What is your living situation today?: I have a steady place to live Within the past 12 months, did the food you bought not last and you didn't have the money to get more?: Never true Within the past 12 months, did you worry whether your food would run out before you got money to buy more?: Never true Do you have trouble paying for medicines?: No Do you have trouble getting transportation to medical appointments?: No Do you have trouble paying your heating and electricity bill?: No Do you have trouble taking care of your child, family member or friend?: Yes Do you have trouble with day-to-day activities such as bathing, preparing meals, shopping, managing finances, etc.?: No Are you currently unemployed and looking for a job?: No Are you interested in more education?: Yes Please select the resources that you would like help with: None Currently or been in a relationship where the following occur: No concerns reported THRIVE Score: 0 AUDIT C Alcohol Use Questionnaire (AUDIT-C) 1. How often do you have a drink containing alcohol?: Never Total Score: 0 JANENE-7 AMB Questionnaire JANENE-7 Date JANENE - 7 assessed: 07/05/24 Feeling nervous, anxious, or on edge: 0 = Not at all Not being able to stop or control worryin = Not at all Worrying too much about different things: 0 = Not at all Trouble relaxin = Not at all Being so restless that it is hard to sit still: 0 = Not at all Becoming easily annoyed or irritable: 0 = Not at all Feeling afraid as if something awful might happen: 0 = Not at all Total JANENE-7 score (0-4 normal; 5-9 mild; 10-14 moderate; 15-21 severe): 0 Source: Developed by Drs. Dominic De Leon, Pam Landry, Chinedu Tate and colleagues, with an educational armida from [employer]. Review of Systems Const Denies chills, Denies fatigue, Denies fever(s), Denies headache(s) and Denies weakness ENT Denies dizziness and Denies headache(s) Card Denies dyspnea Resp Denies cough, Denies dyspnea, Denies wheezing and Denies other (shortness of breath) Musc Denies numbness and Denies tingling Neuro Denies dizziness, Denies headache(s), Denies numbness, Denies tingling and Denies weakness Psych Denies anxiety and Denies depression Endo Denies fatigue Aller/Immun Denies wheezing Physical exam (Primary Care) Vital Signs: Last Vital Signs Temp 97.8 F 07/05/24 08:35 Pulse 96 07/05/24 08:35 Resp 14 07/05/24 08:35 BP 110/66 07/05/24 08:35 Pulse Ox 96 07/05/24 08:35 Oxygen Delivery Method Room Air 07/05/24 08:35 BMI result Body Mass Index 41.2 Tobacco/Smoking Status: Tobacco use Status Tobacco use date assessed 10/04/23 07/05/24 08:38 Patient Tobacco Use Status Never used Tobacco 07/05/24 08:38 e-Cigarette/Vaping Use Never Used 07/05/24 08:38 PHQ-9: PHQ-9 Score PHQ-9: Total score 3 07/05/24 08:38 Depression Screening Interpretation: Negative Thrive Assessment: Date of Thrive Assessment Date Thrive assessed 07/05/24 07/05/24 08:38 Currently or been in a relationship where the following occur: No concerns reported Const General: well developed; No acute distress Nutritional Appearance: well nourished and obese morbidly obese Orientation/consciousness: patient oriented x3 HENMT Head: Yes normocephalic and Yes atraumatic Eyes General: appearance normal, both eyes and all related structures Pupils: Equal, round and reactive pupils present EOM: EOMs intact bilaterally Resp Effort & Inspection: normal respiratory effort Neuro General: patient oriented x3 and gait normal Cranial nerves: Yes Equal, round and reactive pupils present Psych Affect: normal affect Coding Level of Care Code Est Pt Level 3 (70166) Diagnoses Anxiety with depression F41.8 Morbid obesity E66.01 Additional Codes PHQ-9 - 01323 - PHQ-9 Billing: Yes ([id number]) Assessment & Plan Assessment & Plan (1) Anxiety with depression: Code(s): F41.8 - Other specified anxiety disorders Category: Medical Plan: Symptoms?are?well?controlled?on?citalopram?20?mg?daily. Patient?is?happy?with?current?dose?and?how?he?feels. We?had?discussed?at?prior?visit?that?he?may?want?to?reduce?dose?back?to?10?mg?daily?at?some?point. We?will?get?him?back?in?about?6?months?to?review?and?see?if?he?would?like?to?bring?his?citalopram?dose?back?down. Patient?is?exercising?regularly?and?I?encouraged?this. He?also?notes?that?he?wants?to?take?on?more?courses?at?University?and?is?considering?how?this?will?change?his?stress?levels. We?discussed?planning?to?mitigate?stress (2) Morbid obesity: Code(s): E66.01 - Morbid (severe) obesity due to excess calories Category: Medical Plan: Patient?had?lost?some?weight?but?has?gained?back. He?is?exercising?regularly He?is?able?prepare?his?own?meals I?encouraged?working?on?decreased?portion?sizes?while?maintaining?regular?exercise. Will?monitor Medications: Refilled citalopram 20 mg PO DAILY 90 days 90 tabs 3RF
[2024-07-05 08:35] VITALS: BP 110/66; PULSE 96; RESP 14; TEMP 36.6; O2SAT 96; BMI 41.2
== END 2024-07-05 08:57 | disposition home or self-care (01) ==
PROVIDERS: PCP Family Medicine; Visit Provider Family Medicine
DX: F41.8 Other specified anxiety disorders (principal); E66.01 Morbid (severe) obesity due to excess calories; Z68.41 Body mass index [BMI] 40.0-44.9, adult

== ENCOUNTER → 2024-07-05 08:27 | Outpatient (BNVA) | payer BC, SELFPAY | PROVIDERS: PCP Family Medicine; Visit Provider Family Medicine | DX: F41.8 Other specified anxiety disorders (principal); E66.01 Morbid (severe) obesity due to excess calories; Z68.41 Body mass index [BMI] 40.0-44.9, adult; Z79.899 Other long term (current) drug therapy | CPT/HCPCS: 96127 ==

== ENCOUNTER 2024-12-31 08:15 | Outpatient (AMB) | payer BC, SELFPAY ==
--- NOTE | 2024-12-31 08:48 | MHC.PC.OV ---
Vital Signs 12/31/24 08:51 Height 5 ft 7 in Weight 263 lb 6 oz BMI 41.2 BP 110/68 Blood Pressure Location Lt brachial Position Sitting Respiration 14 Pulse 75 Pulse Source Pulse Oximeter Temp 97.9 F Temp Source Oral Pulse Oximetry (%) 97 Oxygen Delivery Method Room Air Intake Visit Reasons: f/u anxiety/depression Intake Note: patient is scheduled for mental health follow up News Gathering Technician Required: No Allergies No Known Allergies Allergy (Verified 12/31/24 08:49) Medication List - Last Reconciled 12/31/24 by Mansoor Castro MD citalopram 20 mg PO DAILY 90 days [flax seed oil .] Tobacco use date assessed: 10/04/23 Dental Screening Dental Screen Date: 01/24/23 HPI f/u anxiety/depression HPI Details 39 y/o male presents to f/u anxiety/depression and weight. He is on citalopram 20mg daily. PHQ-9 3, JANENE-7 1 today. He notes he feels his mood is fine but does note ongoing stressors. Pt continues to try to lose weight. Has been exercising 3-4x a week but does still struggle with diet. Has complaints of a ?folliculitis - notes symptoms started a few days ago. HPI Comments History of Present Illness Details Documentation assistance for Mansoor Castro MD, was provided by Wilver Trent, Executor Of Estate on 12/31/2024 at 9:02 AM [place]. I, Dr. Castro, have read, observed, and verified documentation. ? PFSH Medical History Epidermoid cyst of skin of chest Sebaceous cyst of left axilla Cyst near tailbone Family History Paternal Grandmother Cancer Maternal Grandmother Advanced dementia Father Substance abuse Mother Mental health disorder Social History Household Members: Other Household Members Other:: mother Both parents involved: No Housing: Apartment Are you a primary account executive healthcare to a significant other at home: Yes Do you presently have visiting nurse or other home services: No 75 years or older and lives alone: No Alcohol intake: never Patient Tobacco Use Status: Never used Tobacco e-Cigarette/Vaping Use: Never Used service: No Current occupational status: employed 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 1. Little interest or pleasure in doing things: not at all 2. Feeling down, depressed, or hopeless: not at all 3. Trouble falling or staying asleep, or sleeping too much: several days 4. Feeling tired or having little energy: several days 5. Poor appetite or overeating: several days 6. Feeling bad about yourself - or that you are a failure or have let yourself or your family down: not at all 7. Trouble concentrating on things, such as reading the newspaper or watching television: not at all 8. Moving or speaking so slowly that other people could have noticed. Or the opposite - being so fidgety or restless that you have been moving around a lot more than usual: not at all 9. Thoughts that you would be better off or of hurting yourself in some way: not at all Total score: 3 Depression Screening Interpretation: Negative Depression Screening Done: Yes 25843 - PHQ-9 Billing: Yes Source: Developed by Drs. Dominic De Leon, Pam Landry, Chinedu Tate and colleagues, with an educational armida from [employer]. Thrive Questionnaire Date Thrive assessed: 07/02/24 I am a: Patient What is your living situation today?: I have a steady place to live Within the past 12 months, did the food you bought not last and you didn't have the money to get more?: Never true Within the past 12 months, did you worry whether your food would run out before you got money to buy more?: Never true Do you have trouble paying for medicines?: No Do you have trouble getting transportation to medical appointments?: No Do you have trouble paying your heating and electricity bill?: No Do you have trouble taking care of your child, family member or friend?: Yes Do you have trouble with day-to-day activities such as bathing, preparing meals, shopping, managing finances, etc.?: No Are you currently unemployed and looking for a job?: No Are you interested in more education?: Yes Please select the resources that you would like help with: None Currently or been in a relationship where the following occur: No concerns reported THRIVE Score: 0 JANENE-7 AMB Questionnaire JANENE-7 Date JANENE - 7 assessed: 12/31/24 Feeling nervous, anxious, or on edge: 0 = Not at all Not being able to stop or control worryin = Not at all Worrying too much about different things: 0 = Not at all Trouble relaxin = Not at all Being so restless that it is hard to sit still: 0 = Not at all Becoming easily annoyed or irritable: 1 = Several days Feeling afraid as if something awful might happen: 0 = Not at all Total JANENE-7 score (0-4 normal; 5-9 mild; 10-14 moderate; 15-21 severe): 1 Source: Developed by Drs. Dominic De Leon, Pam Landry, Chinedu Tate and colleagues, with an educational armida from [employer]. JANENE-7 Assessment Billing JANENE-7 Assessment Tool: JANENE-7 Assessment 65585 Review of Systems Const Denies chills, Denies fatigue, Denies fever(s), Denies headache(s) and Denies weakness ENT Denies dizziness and Denies headache(s) Card Denies dyspnea Resp Denies cough, Denies dyspnea, Denies wheezing and Denies other (shortness of breath) Musc Denies numbness and Denies tingling Neuro Denies dizziness, Denies headache(s), Denies numbness, Denies tingling and Denies weakness Psych Denies anxiety and Denies depression Endo Denies fatigue Aller/Immun Denies wheezing Physical exam (Primary Care) Vital Signs: Last Vital Signs Temp 97.9 F 12/31/24 08:51 Pulse 75 12/31/24 08:51 Resp 14 12/31/24 08:51 BP 110/68 12/31/24 08:51 Pulse Ox 97 12/31/24 08:51 Oxygen Delivery Method Room Air 12/31/24 08:51 BMI result Body Mass Index 41.2 Tobacco/Smoking Status: Tobacco use Status Tobacco use date assessed 10/04/23 12/31/24 08:54 Patient Tobacco Use Status Never used Tobacco 12/31/24 08:54 e-Cigarette/Vaping Use Never Used 12/31/24 08:54 PHQ-9: PHQ-9 Score PHQ-9: Total score 3 12/31/24 09:02 Depression Screening Interpretation: Negative Thrive Assessment: Date of Thrive Assessment Date Thrive assessed 07/02/24 12/31/24 08:54 Currently or been in a relationship where the following occur: No concerns reported Const General: well developed; No acute distress Nutritional Appearance: obese morbidly obese Orientation/consciousness: patient oriented x3 HENMT Head: Yes normocephalic and Yes atraumatic Eyes General: appearance normal, both eyes and all related structures Pupils: Equal, round and reactive pupils present EOM: EOMs intact bilaterally Resp Effort & Inspection: normal respiratory effort Auscultation: clear to auscultation bilaterally Cardio Rate: regular rate Rhythm: regular rhythm Heart sounds: S1 normal heart sound present, S2 normal heart sound present, no gallops, no murmurs and no rubs Neuro General: patient oriented x3 and gait normal Cranial nerves: Yes Equal, round and reactive pupils present Psych Affect: normal affect Coding Level of Care Code Est Pt Level 3 (67865) Diagnoses Anxiety with depression F41.8 Morbid obesity E66.01 Additional Codes JANENE-7 Assessment Billing - JANENE-7 Assessment Tool: JANENE-7 Assessment 48985 ([id number]) PHQ-9 - 03271 - PHQ-9 Billing: Yes ([id number]) Assessment & Plan Assessment & Plan (1) Anxiety with depression: Code(s): F41.8 - Other specified anxiety disorders Category: Medical Plan: Ongoing stressors but patient's mood and anxiety seem well controlled. We had discussed decreasing his SSRI at his last visit. Will have him try taking citalopram for 10 mg per day instead of 20 mg per day (2) Morbid obesity: Code(s): E66.01 - Morbid (severe) obesity due to excess calories Category: Medical Plan: Discussed patient's weight and he has had no significant change in weight over the past 6 months. Will refer him to the metabolic clinic Also discussed GLP 1 medications and he talk to insurance company about this Orders: Orders Comprehensive [place]. Panel Fast Today Z00.00 - Encounter for general adult medical examination without abnormal findings UA CC w/rflx Micro + Cult Today Z00.00 - Encounter for general adult medical examination without abnormal findings TSH reflex Free T4 Today Z00.00 - Encounter for general adult medical examination without abnormal findings Microalbumin, Random (w Creat) Today I10 - Essential (primary) hypertension Lipid Panel Today Z00.00 - Encounter for general adult medical examination without abnormal findings Hemoglobin A1c Today R73.01 - Impaired fasting glucose Referrals Metabolic Clinic Referral E66.9 - Obesity, unspecified Medications: Changed From citalopram 20 mg PO DAILY 90 days 90 tabs 3RF To citalopram 10 mg PO DAILY 90 tabs 3RF 90 days
[2024-12-31 08:51] VITALS: BP 110/68; PULSE 75; RESP 14; TEMP 36.6; O2SAT 97; BMI 41.2
== END 2024-12-31 09:16 | disposition home or self-care (01) ==
LOC: HO.HMCFM 08:16
PROVIDERS: PCP Family Medicine; Visit Provider Family Medicine
DX: F41.8 Other specified anxiety disorders (principal); E66.01 Morbid (severe) obesity due to excess calories; Z68.41 Body mass index [BMI] 40.0-44.9, adult

== ENCOUNTER → 2024-12-31 08:15 | Outpatient (BNVA) | payer BC, SELFPAY | PROVIDERS: PCP Family Medicine; Visit Provider Family Medicine | DX: F41.8 Other specified anxiety disorders (principal); E66.01 Morbid (severe) obesity due to excess calories; Z68.41 Body mass index [BMI] 40.0-44.9, adult; Z79.899 Other long term (current) drug therapy; Z13.31 Encounter for screening for depression; Z13.30 Encounter for screening examination for mental health and behavioral disorders, unspecified | CPT/HCPCS: 96127 ==

== ENCOUNTER 2025-05-24 08:14 | Outpatient (AMB) | payer BC, SELFPAY ==
--- NOTE | 2025-05-24 11:30 | A.OFFVIS_ITS ---
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: Details: Start time: 11.25am, End time: 12.11pm ?I spent 41 minutes speaking with the patient on the phone plus an additional 5 minutes reviewing and updating records for a total of 46 minutes HPI Comments Details: Previous weight loss efforts: self diets, exercise, 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 Wakes up: 7am, Sleeps: 11pm, Naps in afternoon on weekends and holidays Breakfast: 8am (omelette, sandwich) Lunch: 12-1pm (breads, vegetable campbell, rice, lentil, protein-based pasta) Dinner: 4-6pm (same as lunch) Snacks: 11am (Pure protein bars, or Optimum Nutrition shake), 3pm (veggie michael, fruits), 8pm (fruits or protein bar) Exercise: none, has Gym membership, swimming x3-4/wk Beverages: Coffee: (1 cup/d with milk), Tea: (several cups per day with one s nithin of honey), Soda: zero calorie Gingerale, Juice: none, ETOH: none [facility] Medical History (Updated 01/27/24 @ 12:44 by Wilver Trent) Epidermoid cyst of skin of chest Sebaceous cyst of left axilla Cyst near tailbone Surgical History (Updated 04/26/25 @ 13:18 by Steph Gates CMA) No history of previous surgery Family History Paternal Grandmother Cancer Maternal Grandmother Advanced dementia Father Substance abuse Mother Mental health disorder Social History Household Members: Other Household Members Other:: mother Both parents involved: No Housing: Apartment Are you a primary critical care physician to a significant other at home: Yes Do you presently have visiting nurse or other home services: No 75 years or older and lives alone: No Alcohol intake: never Patient Tobacco Use Status: Never used Tobacco e-Cigarette/Vaping Use: Never Used service: No Current occupational status: employed 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 Cognitive needs: No Hearing needs: No Vision needs: No Telehealth Telehealth Telehealth Platform: Telephone Location of provider rendering services: practice address Location of patient: address on file Patient Identification confirmed using: Name, : Yes Telehealth method: voice only Patient verbally consented to treatment: Yes Patient verbally consented to billing insurance company: Yes Patient informed of any privacy concerns related to visit: Yes Minutes spent on Phone/Video with Pt.: 46 Assessment & Plan Assessment & Plan (1) Morbid obesity: Code(s): E66.01 - Morbid (severe) obesity due to excess calories Category: Medical Plan: Dear Becca, It was a pleasure talking to you?today. This is the summary of what we discussed today: ?1. As we discussed, based on your present BMI you are approximately 110lbs overweight. In my opinion, for any weight loss strategy to be successful should have a high probability to help you lose at least 100lbs out of 110lbs of the extra weight you carry. ?We discussed in detail the available therapeutic options: ?1) our lifestyle intervention program that has an average weight loss of 10% in 3 months.?Some patients continue it for longer and have lost over 50lbs but this is not common. Our lifestyle program can be provided by me. I will provide you with a link to use the zoey if you choose to do so. We use protein shakes and protein bars to replace some of the meals of the day and cover your appetite better. We will decide together the exact combination. ?2) Weight loss medications: these can be used in conjunction with our lifestyle program or you may choose to use them without following a lifestyle program from my program but your own. One option is the Phentermine pill which is affordable as self pay option. It is well tolerated and most common side effects include blood pressure elevation, dry mouth, difficulty sleeping and heart palpitations. However, it can raise the blood pressure and it may not be the best option for you since you have high blood pressure already. It?s a temporary solution however and most patients tend to put the weight back once the medication is stopped. 3) Your insurance does not cover the new weight loss shots. We also discussed that you can self pay for the weight loss injections and the cost is $249 for the first month and $499 for any other month thereafter. These payments go to the drug company directly and not to us. As we discussed, this is not a rat exterminator solution, as most patients put all the weight back once they are off the medication. There is also an option to get generic versions from compound pharmacies at cheaper rates but their efficacy and how they are manufactured is not that clear. ?4) We also discussed about the lap sleeve gastrectomy. In my opinion this is the best option to solve your problem based on your situation and at the same time repair the diaphragmatic hernia you have. This will address the reflux as well as the frequent runs to the bathrooom you experience. ??I emphasized the importance of close follow-up, adherence to instructions and good communication. The surgery does not replace the need to change your lifestlyle which is the cause of the obesity problem. The surgery provides the motivation to try again to change your lifestyle, it reduces the appetite and make the transition to a better lifestyle easier and doubles the amount of weight you would lose compared to doing the lifestyle change without the surgery. You will need to be on a liquid diet with protein shakes for 2 weeks before surgery to maximize weight loss and boost your nutritional status to recover better from surgery and also for the first two weeks after surgery to let the stomach heal before we introduce other foods. After the first 2 weeks we will introduce protein bars and soft foods like scrambled eggs, cottage cheese and yogurt and after the 6th week will introduce meat, fish and cooked vegetables in small amounts. Over time you should be able to eat everything in small amounts. Side effects like nausea, vomiting, heartburn or abdominal pain are not common in the practice unless you are not following in the practice. This operation requires lifetime commitment to following in our practice and communication with me. You will much less weight and experience side effects if you don?t communicate or not following in the practice. Complications are rare and in our practice is about 1/10 of the national average. 5) Very Important: We do extensive research in this practice. In very recent research we did, we found that patients who did the lifestyle program without medications followed by weight loss surgery, lost twice as much as they would lose if they used the shots for the same period of time and with the two groups being completely matched in terms of demographics and starting weights. Another research study we did found that when we compared patients who did our lifestyle program without or with the weight loss shots, they lost the same weight but they did not lose any muscle mass. The patients who used the shots lost about 3% of their muscle mass in 3 months which translates to 5-15lbs of actual muscle mass depending on each patient's initial weight. That's not good b ecause it makes you frail and weak and reduces your metabolism. In another research study we did, we found that losing 10-20% of your initial weight before the weight loss surgery, followed by surgery at the lowest possible weight, gives you a significant boost in correction weight loss 6 years or more after surgery, that makes a difference in the long-term success. Preoperative weight loss is not commonly used by many practices especially at this magnitude, but it is our philosophy and makes a huge difference. Please let me know what you decide.? Dr. Pena [phone]?
[2025-05-24 11:42] VITALS: BMI 41.7
== END 2025-05-24 12:11 | disposition home or self-care (01) ==
LOC: HO.HBS 08:14
PROVIDERS: PCP Family Medicine; Visit Provider Surgery
DX: E66.01 Morbid (severe) obesity due to excess calories (principal); Z68.41 Body mass index [BMI] 40.0-44.9, adult
CPT/HCPCS: 99204

== ENCOUNTER 2025-05-28 10:28 | Outpatient (AMB) | payer BC, SELFPAY ==
--- NOTE | 2025-05-28 10:32 | A.OFFPC_ITS ---
Vital Signs 05/28/25 10:36 Height 5 ft 7 in Weight 274 lb 2 oz BMI 42.9 BP 116/68 Blood Pressure Location Rt brachial Position Sitting Respiration 15 Pulse 87 Pulse Source Pulse Oximeter Temp 97.1 F Temp Source Temporal Artery Scan Pulse Oximetry (%) 96 Oxygen Delivery Method Room Air Intake Visit Reasons: endo referral /weight management Intake Note: Janes presents in the office today to discuss an endocrinology referral and weight management. Would like to discuss his medication. 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 BMI today 42.9, 274 lbs. He is requesting an endo referral. He notes he exercises regularly and watches his diet. Had seen weight management once. Pt notes since decreasing citalopram, anxiety/depression worsened slightly. HPI Comments History of Present Illness Details Documentation assistance for Mansoor Castro MD, was provided by Wilver Trent,? Non Categorical Preschool Teacher on 05/28/2025 at 10:58 AM EST. I, Dr. Castro, have read, observed, and verified documentation. ?? [facility] Medical History (Updated 01/27/24 @ 12:44 by Wilver Trent) Epidermoid cyst of skin of chest Sebaceous cyst of left axilla Cyst near tailbone Surgical History (Updated 04/26/25 @ 13:18 by Steph Gates [facility]) No history of previous surgery Family History Paternal Grandmother Cancer Maternal Grandmother Advanced dementia Father Substance abuse Mother Mental health disorder Social History (Updated 05/28/25 @ 10:35 by Balbina Bogsg CMA) Household Members: Other Household Members Other:: mother Both parents involved: No Housing: Apartment Are you a primary primary care nurse practitioner to a significant other at home: Yes Do you presently have visiting nurse or other home services: No 75 years or older and lives alone: No Alcohol intake: never Patient Tobacco Use Status: Never used Tobacco e-Cigarette/Vaping Use: Never Used Second Hand Smoke Exposure: No Use of substances other than those prescribed or required for medical reasons: No service: No Current occupational status: employed 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 Cognitive needs: No Hearing needs: No Vision needs: No Questionnaire Thrive Questionnaire Date Thrive assessed: 07/02/24 I am a: Patient What is your living situation today?: I have a steady place to live Within the past 12 months, did the food you bought not last and you didn't have the money to get more?: Never true Within the past 12 months, did you worry whether your food would run out before you got money to buy more?: Never true Do you have trouble paying for medicines?: No Do you have trouble getting transportation to medical appointments?: No Do you have trouble paying your heating and electricity bill?: No Do you have trouble taking care of your child, family member or friend?: Yes Do you have trouble with day-to-day activities such as bathing, preparing meals, shopping, managing finances, etc.?: No Are you currently unemployed and looking for a job?: No Are you interested in more education?: Yes Please select the resources that you would like help with: None Currently or been in a relationship where the following occur: No concerns reported THRIVE Score: 0 JANENE-7 AMB Questionnaire JANENE-7 Date JANENE - 7 assessed: 12/31/24 Source: Developed by Drs. Dominic De Leon, Pam Landry, Chinedu Tate and colleagues, with an educational armida from [employer]. Review of Systems Const Denies chills, Denies fatigue, Denies fever(s), Denies headache(s) and Denies weakness ENT Denies dizziness and Denies headache(s) Card Denies dyspnea Resp Denies cough, Denies dyspnea, Denies wheezing and Denies other (shortness of breath) Musc Denies numbness and Denies tingling Neuro Denies dizziness, Denies headache(s), Denies numbness, Denies tingling and Denies weakness Psych Reports anxiety and Reports depression Endo Denies fatigue Aller/Immun Denies wheezing Physical exam (Primary Care) Vital Signs: Last Vital Signs Temp 97.1 F 05/28/25 10:36 Pulse 87 05/28/25 10:36 Resp 15 05/28/25 10:36 BP 116/68 05/28/25 10:36 Pulse Ox 96 05/28/25 10:36 Oxygen Delivery Method Room Air 05/28/25 10:36 BMI result Body Mass Index 42.9 Tobacco/Smoking Status: Tobacco use Status Tobacco use date assessed 05/28/25 05/28/25 10:35 Patient Tobacco Use Status Never used Tobacco 05/28/25 10:35 e-Cigarette/Vaping Use Never Used 05/28/25 10:35 Thrive Assessment: Date of Thrive Assessment Date Thrive assessed 07/02/24 05/28/25 10:33 Currently or been in a relationship where the following occur: No concerns reported Const General: well developed; No acute distress Nutritional Appearance: well nourished and obese morbidly obese Orientation/consciousness: patient oriented x3 HENMT Head: Yes normocephalic and Yes atraumatic Eyes General: appearance normal, both eyes and all related structures Pupils: Equal, round and reactive pupils present EOM: EOMs intact bilaterally Resp Effort & Inspection: normal respiratory effort Auscultation: clear to auscultation bilaterally Cardio Rate: regular rate Rhythm: regular rhythm Heart sounds: S1 normal heart sound present, S2 normal heart sound present, no gallops, no murmurs and no rubs Neuro General: patient oriented x3 and gait normal Cranial nerves: Yes Equal, round and reactive pupils present Psych Affect: normal affect Coding Level of Care Code Est Pt Level 3 (31526) Diagnoses Morbid obesity E66.01 Anxiety with depression F41.8 Assessment & Plan Assessment & Plan (1) Morbid obesity: Code(s): E66.01 - Morbid (severe) obesity due to excess calories Category: Medical Plan: Ongoing weight gain. Patient has had initial presentation with weight management but says he has not really started the program yet. He was wondering if a referral to endocrinology would be the best option because he is worried he may have hormonal issues causing weight gain. Recommended he follow-up with weight management as they are quite thorough about investigating issues if he is having difficulty losing weight while following their program. Patient understands and agrees He will let me know how he is doing at our next, upcoming visit will contact me through the portal if needed. (2) Anxiety with depression: Code(s): F41.8 - Other specified anxiety disorders Category: Medical Plan: He notes that since decreasing citalopram his symptoms of anxiety and depression have worsened slightly. Will have him increase citalopram back to 20 mg daily Will review again at his upcoming visit to ensure he is tolerating this Medications: Changed From citalopram 10 mg PO DAILY 90 days 90 tabs 3RF To citalopram 20 mg PO DAILY 90 tabs 3RF 90 days
[2025-05-28 10:36] VITALS: BP 116/68; PULSE 87; RESP 15; TEMP 36.2; O2SAT 96; BMI 42.9
== END 2025-05-28 11:13 | disposition home or self-care (01) ==
LOC: HO.HMCFM 10:29
PROVIDERS: PCP Family Medicine; Visit Provider Family Medicine
DX: F41.8 Other specified anxiety disorders (principal); E66.01 Morbid (severe) obesity due to excess calories; Z68.41 Body mass index [BMI] 40.0-44.9, adult

== ENCOUNTER 2025-05-29 08:09 | Outpatient (REF) | payer BC, SELFPAY ==
[2025-05-29 11:08] LABS: MANUAL DIFF FLAG NO
[2025-05-29 11:30] LABS: Appearance Urine Clear; Glucose Urine UA Negative (Negative); PH 6.5 (5.0-9.0); Specific Gravity - Urine 1.025 (1.005-1.025); UMIC TRIGGER UACC YES
[2025-05-29 11:31] LABS: Hematocrit 41.8 % (42.0-52.0); Hemoglobin 14.1 g/dl (14.0-18.0); Imm Gran Abs Auto 0.02 X10*3/uL (0.00-0.03); Imm Gran Pct Auto 0.3 % (0.0-0.4); Lymphocytes Absolute Auto 2.2 X10*3/uL (1.2-4.9); Mean Corpuscular HGB Conc 33.7 g/dl (31.0-36.0); Mean Corpuscular Hemoglobin 28.9 pg (27.0-33.0); Mean Corpuscular Volume 85.7 fL (80.0-98.0); NRBC Abs Auto 0.000 X10*3/uL (0.0-0.012); NRBC Pct Auto 0.0 /100WBC (0.0-0.2); Platelet Count 265 X10*3/uL (160-400); Red Blood Count 4.88 X10*6/uL (4.60-5.80); White Blood Count 6.2 X10*3/uL (4.8-10.8)
[2025-05-29 12:21] LABS: Cholesterol 168 mg/dL (<200); HDL Cholesterol 43 mg/dL (>40); Triglycerides 134 mg/dL (<150)
[2025-05-29 12:31] LABS: Alanine Aminotransferase 29 U/L (0-40); Albumin Level 4.2 g/dL (3.5-5.0); Alkaline Phosphatase 35 U/L (39-117); Anion Gap 10 (12-20); Aspartate Amino Transferase 25 U/L (5-37); Blood Urea Nitrogen 18 mg/dL (9-16); Calcium 8.8 mg/dL (8.4-10.2); Carbon Dioxide 26 mmol/L (22-29); Chloride 107 mmol/L (96-108); Cholesterol 170 mg/dL (<200); Estimated Glomerular Filt Rate > 60; HDL Cholesterol 43 mg/dL (>40); Iron 101 mcg/dL (45-160); Percent Iron Saturation 32 % (15-50); Potassium 3.8 mmol/L (3.3-5.1); Sodium 139 mmol/L (135-145); Total Iron Binding Capacity 315 mcg/dL (228-428); Total Protein 7.2 g/dL (6.5-8.0); Triglycerides 134 mg/dL (<150); Unsaturated Iron Binding 214 ug/dL
[2025-05-29 12:39] LABS: Folate 4.9 ng/mL (> or = 4.0); Vitamin B12 327 pg/mL (200-900)
[2025-05-29 12:51] LABS: Ferritin 174 ng/mL (20-250)
[2025-05-29 13:00] LABS: Microalbum/Creatinine Ratio Ur 4.5 ug/mg cr (<30)
== END 2025-05-29 08:10 | disposition home or self-care (01) ==
LOC: HO.WFDLDS 08:09
PROVIDERS: Surgery; Visit Provider Family Medicine
DX: Z00.00 Encounter for general adult medical examination without abnormal findings (principal); Z13.6 Encounter for screening for cardiovascular disorders; I10 Essential (primary) hypertension; E78.6 Lipoprotein deficiency; E66.01 Morbid (severe) obesity due to excess calories; R73.01 Impaired fasting glucose; R79.89 Other specified abnormal findings of blood chemistry
CPT/HCPCS: 36415; 80053; 80061; 81001; 82043; 82306; 82533; 82570; 82607; 82627; 82670; 82728; 82746; 83036; 83525; 83540; 84402; 84403; 84425; 84443; 84590; 85025; 86140

== ENCOUNTER 2025-06-04 16:02 | Outpatient (AMB) | payer BC, SELFPAY ==
--- NOTE | 2025-06-04 16:11 | A.OFFPC_ITS ---
Vital Signs 06/04/25 16:13 Height 5 ft 7 in Weight 269 lb BMI 42.1 BP 108/82 Blood Pressure Location Rt brachial Position Sitting Respiration 15 Pulse 79 Pulse Source Pulse Oximeter Temp 97.2 F Temp Source Temporal Artery Scan Pulse Oximetry (%) 97 Oxygen Delivery Method Room Air Intake Visit Reasons: CPE with f/u labs and health maint Intake Note: Janes presents in the office today for his physical and a follow up to his lab results. 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 Labs drawn 05/29/25. Reviewed labs with pt. Hct 41.8%. A1c 5.6%. Triglycerides 134. TC 168. LDL 99. HDL 43. He is on citalopram 20mg for his mood. Complaints of plantar fasciitis. [facility] Medical History (Updated 06/04/25 @ 16:37 by Wilver Trent) Epidermoid cyst of skin of chest Sebaceous cyst of left axilla Cyst near tailbone Surgical History (Updated 04/26/25 @ 13:18 by Steph Gates [facility]) No history of previous surgery Family History Paternal Grandmother Cancer Maternal Grandmother Advanced dementia Father Substance abuse Mother Mental health disorder Social History (Updated 06/04/25 @ 16:13 by Balbina Boggs CMA) Household Members: Other Household Members Other:: mother Both parents involved: No Housing: Apartment Are you a primary transitional care liaison to a significant other at home: Yes Do you presently have visiting nurse or other home services: No 75 years or older and lives alone: No Alcohol intake: never Patient Tobacco Use Status: Never used Tobacco e-Cigarette/Vaping Use: Never Used Second Hand Smoke Exposure: No service: No Current occupational status: employed 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 Cognitive needs: No Hearing needs: No Vision needs: No Questionnaire Thrive Questionnaire Date Thrive assessed: 07/02/24 I am a: Patient What is your living situation today?: I have a steady place to live Within the past 12 months, did the food you bought not last and you didn't have the money to get more?: Never true Within the past 12 months, did you worry whether your food would run out before you got money to buy more?: Never true Do you have trouble paying for medicines?: No Do you have trouble getting transportation to medical appointments?: No Do you have trouble paying your heating and electricity bill?: No Do you have trouble taking care of your child, family member or friend?: Yes Do you have trouble with day-to-day activities such as bathing, preparing meals, shopping, managing finances, etc.?: No Are you currently unemployed and looking for a job?: No Are you interested in more education?: Yes Please select the resources that you would like help with: None Currently or been in a relationship where the following occur: No concerns reported THRIVE Score: 0 JANENE-7 AMB Questionnaire JANENE-7 Date JANENE - 7 assessed: 12/31/24 Source: Developed by Drs. Dominic De Leon, Pam Landry, Chinedu Tate and colleagues, with an educational armida from [employer]. Review of Systems Const Denies chills, Denies fatigue, Denies fever(s), Denies headache(s) and Denies weakness Eyes Denies change in vision ENT Denies dizziness, Denies headache(s), Denies hearing loss, Denies nasal congestion, Denies sinus pain, Denies sinus pressure and Denies sore throat Card Denies chest pain, Denies lightheadedness, Denies dyspnea and Denies other (palpitations) Resp Denies cough, Denies dyspnea and Denies wheezing GI Denies abdominal pain, Denies melena, Denies hematochezia, Denies change in bowel habits, Denies dyspepsia and Denies nausea Denies hematuria and Denies dysuria Musc Denies abnormal gait, Denies myalgias, Denies arthralgias, Denies numbness and Denies tingling Skin/Breast Denies rash, Denies unusual bruising and Denies wounds Neuro Denies abnormal gait, Denies dizziness, Denies headache(s), Denies memory loss, Denies numbness, Denies Sensory deficit (Neuro), Denies tingling and Denies weakness Psych Denies anxiety, Denies depression and Denies memory loss Endo Denies cold intolerance, Denies fatigue, Denies heat intolerance, Denies polydipsia and Denies polyuria Demetrius/Lymph Denies easy bleeding and Denies easy bruising Aller/Immun Denies wheezing Physical exam (Primary Care) Vital Signs: Last Vital Signs Temp 97.2 F 06/04/25 16:13 Pulse 79 06/04/25 16:13 Resp 15 06/04/25 16:13 BP 108/82 06/04/25 16:13 Pulse Ox 97 06/04/25 16:13 Oxygen Delivery Method Room Air 06/04/25 16:13 BMI result Body Mass Index 42.1 Tobacco/Smoking Status: Tobacco use Status Tobacco use date assessed 06/04/25 06/04/25 16:16 Patient Tobacco Use Status Never used Tobacco 06/04/25 16:16 e-Cigarette/Vaping Use Never Used 06/04/25 16:16 Thrive Assessment: Date of Thrive Assessment Date Thrive assessed 07/02/24 06/04/25 16:16 Currently or been in a relationship where the following occur: No concerns reported Const General: no acute distress, well developed, alert and awake Nutritional Appearance: well nourished and obese morbidly obese Orientation/consciousness: patient oriented x3 [facility] Head: Yes normocephalic and Yes atraumatic Ears: hearing grossly normal bilaterally and TM's normal bilaterally General nose exam: Normal external nose present and Normal nares present Mouth: Normal oral and palatal mucosa present and moist mucous membranes Teeth and gingiva: dentition normal Throat: Yes posterior oropharynx normal Eyes General: appearance normal, both eyes and all related structures Pupils: Equal, round and reactive pupils present and Pupil accommodation reflex normal EOM: EOMs intact bilaterally Neck Neck: Yes normal visual inspection, Yes no lymphadenopathy and Yes trachea midline Thyroid: Thyroid normal Carotids: no bruits Lymphatic: no lymphadenopathy noted Chest Chest palpation & inspection: normal inspection of the chest Resp Effort & Inspection: normal respiratory effort Auscultation: clear to auscultation bilaterally Cardio Rate: regular rate Rhythm: regular rhythm Heart sounds: S1 normal heart sound present, S2 normal heart sound present, no gallops, no murmurs and no rubs Bruits: no abdominal aortic bruits and no carotid bruits GI Palpation (GI): No Abdominal aortic bruit present, Soft to palpation, nontender, No hepatosplenomegaly present and No Rebound tenderness present Auscultation: normal bowel sounds General: Yes no CVA tenderness Back/Spine/Pelvis Back: no CVA tenderness Cervical Spine: cervical ROM normal and No Cervical spine tenderness Thoracic/Lumbar Spine: thoraco-lumbar ROM normal, No pain with thoraco-lumbar ROM, No thoracic spinal tenderness and No lumbar spinal tenderness Skin Lesions: no lesions Rashes: no rashes Trauma: no lacerations or abrasions Wounds: no wounds Nails: normal Neuro General: patient oriented x3 Cranial nerves: Yes Equal, round and reactive pupils present Cognition (Neuro): normal cognition Gait exam (Neuro): Normal gait present Motor exam (neuro): 5/5 motor strength present throughout Sensory Exam: No Sensory deficit (Neuro) Deep tendon reflexes (DTR's): Right patellar reflex intensity grade: 2+ and Left patellar reflex intensity grade: 2+ Extrem General: Yes normal to inspection and No edema Psych Appearance: grossly normal Affect: normal affect Attitude: cooperative Thought process: Normal thought process present Coding Level of Care Code Est Pt Level 3 (41471) Est Pt Prev Care 18-39y(17725) Diagnoses Adult general medical exam Z00.00 Anxiety with depression F41.8 Elevated fasting glucose R73.01 Plantar fasciitis M72.2 Morbid obesity E66.01 Assessment & Plan Assessment & Plan (1) Adult general medical exam: Code(s): Z00.00 - Encounter for general adult medical examination without abnormal findings Category: Medical Plan: 39-year-old male presents for complete physical exam (2) Anxiety with depression: Code(s): F41.8 - Other specified anxiety disorders Category: Medical Plan: Recently increase citalopram He notes mild sexual side effects but wants to continue No significant increase in mood yet Will follow-up at next visit (3) Elevated fasting glucose: Code(s): R73.01 - Impaired fasting glucose Category: Medical Plan: A1c 5.6% which is top of normal range He is working with the weight management program for weight loss Watch sugars and starches in diet (4) Plantar fasciitis: Code(s): M72.2 - Plantar fascial fibromatosis Category: Medical Plan: Demonstrated exercises Currently has no significant symptoms. (5) Morbid obesity: Code(s): E66.01 - Morbid (severe) obesity due to excess calories Category: Medical Plan: As above, working with weight management for weight loss. Has lost about 5 lb Follow-up with weight management as recommended Orders: Orders Comprehensive [place]. Panel Fast Today F41.9 - Anxiety disorder, unspecified, Z00.00 - Encounter for general adult medical examination without abnormal findings Hemoglobin A1c Today R73.01 - Impaired fasting glucose Complete Blood Count Auto Diff Today D64.9 - Anemia, unspecified, Z00.00 - Encounter for general adult medical examination without abnormal findings TSH reflex Free T4 Today F41.9 - Anxiety disorder, unspecified, Z00.00 - Encounter for general adult medical examination without abnormal findings
[2025-06-04 16:13] VITALS: BP 108/82; PULSE 79; RESP 15; TEMP 36.2; O2SAT 97; BMI 42.1
== END 2025-06-04 16:59 | disposition home or self-care (01) ==
LOC: HO.HMCFM 16:03
PROVIDERS: PCP Family Medicine; Visit Provider Family Medicine
DX: Z00.00 Encounter for general adult medical examination without abnormal findings (principal); F41.8 Other specified anxiety disorders; E66.01 Morbid (severe) obesity due to excess calories; Z68.41 Body mass index [BMI] 40.0-44.9, adult; M72.2 Plantar fascial fibromatosis; R73.01 Impaired fasting glucose